=== PATIENT | male | born 1945 | race Caucasian/White ===

== ENCOUNTER 2023-04-14 16:42 | Emergency (ER) | payer MEDICARE, BC ==
[2023-04-14] MEDS ORDERED: Naloxone 0.4 MG/ML SDV IVPUSH PRN (17:48)
[2023-04-14] MEDS: fentaNYL 50 MCG/ML SDV IM ONE (18:03)
== END 2023-04-14 18:35 | disposition home or self-care (01) ==
LOC: VM.ED 16:42 → MERGE 16:42 → VM.ED 18:35
DX: S70.02XA Contusion of left hip, initial encounter (principal); W19.XXXA Unspecified fall, initial encounter
CPT/HCPCS: 70450; 96372; 99284; J3010

== ENCOUNTER 2023-04-17 15:32 | Inpatient (IN) | payer MEDICARE, BC ==
[2023-04-17] MEDS ORDERED: HYDROmorphone 0.5 MG/0.5 ML Syringe IVPUSH ONE (15:49)
[2023-04-17 15:53] LABS: BASOPHILS ABSOLUTE AUTO 0.1 x10^3/uL (0.0-0.2); BASOPHILS PERCENT AUTO 0.5 % (0.2-1.2); EOSINOPHILS ABSOLUTE AUTO 0.6 x10^3/uL (0.0-0.5); EOSINOPHILS PERCENT AUTO 5.9 % (0.0-4.0); HEMATOCRIT 38.6 % (40.0-52.0); HEMOGLOBIN 12.9 g/dL (14.0-18.0); IMMATURE GRAN ABSOLUTE AUTO 0.02 x10^3/uL (0.00-0.07); LYMPHOCYTES ABSOLUTE AUTO 1.2 x10^3/uL (1.0-4.8); LYMPHOCYTES PERCENT AUTO 12.2 % (25.0-50.0); MEAN CORPUSCULAR HEMOGLOBIN 33.8 pg (26.0-32.0); MEAN CORPUSCULAR HGB CONC 33.4 g/dL (32.0-36.0); MONOCYTES ABSOLUTE AUTO 1.6 x10^3/uL (0.0-0.8); MONOCYTES PERCENT AUTO 15.6 % (2.0-11.0); NEUTROPHILS ABSOLUTE AUTO 6.6 x10^3/uL (1.8-7.7); NEUTROPHILS PERCENT AUTO 65.6 % (50.0-80.0); RED BLOOD CELL COUNT 3.82 x10^6/uL (4.5-6.0)
[2023-04-17] MEDS ORDERED: Ondansetron 4 MG/2 ML SDV IVPUSH ONE (15:54)
[2023-04-17 16:00] LABS: PLATELET COUNT,PLT 229 x10^3/uL (130-400)
[2023-04-17 16:10] LABS: A/G RATIO 0.88; ALANINE AMINOTRANSFERASE,ALT 23 U/L (16-63); ALKALINE PHOSPHATASE 101 U/L (46-116); ASPARTATE AMNIOTRANSFERASE,AST 34 U/L (15-37); BILIRUBIN TOTAL 0.4 mg/dL (0.2-1.0); BLOOD UREA NITROGEN,BUN 39 mg/dL (7-18); C-REACTIVE PROTEIN 8.99 mg/dL (<=0.30); CALCIUM 8.8 mg/dL (8.5-10.1); CARBON DIOXIDE,CO2 30 mmol/L (21-32); CHLORIDE,CL 98 mmol/L (98-107); CREATININE 1.8 mg/dL (0.70-1.30); GLUCOSE RANDOM 196 mg/dL (70-99); MAGNESIUM 2.2 mg/dL (1.8-2.4); POTASSIUM,K 4.4 mmol/L (3.5-5.1); PROTEIN TOTAL,TP 6.4 g/dL (6.4-8.2); SODIUM,NA 136 mmol/L (136-145)
[2023-04-17 16:11] LABS: ANION GAP 12.4 mmol/L (5-15); ESTIMATED GFR 38 mL/min (>=60)
[2023-04-17] MEDS: HYDROmorphone 0.5 MG/0.5 ML Syringe IVPUSH SCH ×2 (20:42→23:26)
[2023-04-17] MEDS ORDERED: Ketotifen 0.025% Ophth Soln 5 ML Bottle EYEBOTH PRN (22:19)
[2023-04-17] MEDS ORDERED: Sennosides 8.6 MG Tab PO PRN (22:50)
[2023-04-17] MEDS ORDERED: Albuterol 0.083% 2.5 MG/3 ML Neb Soln NEB SCH (23:00)
[2023-04-17] MEDS: Sodium Chloride 0.9% 10 ML Syringe FLUSH PRN (23:26)
[2023-04-17] MEDS: Albuterol 0.083% 2.5 MG/3 ML Neb Soln NEB PRN (23:33)
[2023-04-18] MEDS: Isosorbide Mononitrate 30 MG Tab.ER PO SCH ×3 (00:05→21:22)
[2023-04-18] MEDS: Propranolol 20 MG Tab PO SCH ×4 (00:05→21:22)
[2023-04-18] MEDS: Metoclopramide 5 MG Tab PO SCH ×6 (00:05→21:24)
[2023-04-18] MEDS: HYDROmorphone 0.5 MG/0.5 ML Syringe IVPUSH SCH ×8 (02:44→23:07)
[2023-04-18] MEDS: Sodium Chloride 0.9% 10 ML Syringe FLUSH PRN ×2 (02:50→11:14)
[2023-04-18] MEDS: Pantoprazole 40 MG Tab.CR PO SCH ×3 (05:36→17:04)
[2023-04-18 06:47] LABS: HEMATOCRIT 37.8 % (40.0-52.0); HEMOGLOBIN 12.6 g/dL (14.0-18.0); MEAN CORPUSCULAR HEMOGLOBIN 33.8 pg (26.0-32.0); MEAN CORPUSCULAR HGB CONC 33.3 g/dL (32.0-36.0); MEAN CORPUSCULAR VOLUME 101.3 fL (78.0-93.0); RED BLOOD CELL COUNT 3.73 x10^6/uL (4.5-6.0); WHITE BLOOD CELL COUNT,WBC 8.7 x10^3/uL (4.0-10.0)
[2023-04-18] MEDS ORDERED: Metoclopramide 5 MG Tab PO SCH (07:00)
[2023-04-18] MEDS: Tamsulosin 0.4 MG Cap.ER PO SCH (08:26)
[2023-04-18] MEDS: Calcitriol 0.25 MCG Cap PO SCH (08:26)
[2023-04-18] MEDS: Aspirin 325 MG Tab.EC PO SCH (08:26)
[2023-04-18] MEDS: Citalopram 20 MG Tab PO SCH (08:27)
[2023-04-18] MEDS: Allopurinol 100 MG Tab PO SCH (08:27)
[2023-04-18] MEDS: Furosemide 40 MG Tab PO SCH (08:27)
[2023-04-18] MEDS: Vitamin B Complex Tab PO SCH (08:28)
[2023-04-18] MEDS: Empagliflozin 10 MG Tab PO SCH (08:33)
[2023-04-18] MEDS: Formoterol/Mometasone 200-5 MCG 13 GM Inhaler INH SCH ×2 (08:33→21:27)
[2023-04-18] MEDS: Insulin Lispro 100 Units/ML 3 ML Vial SUBCUT SCH ×4 (08:34→21:30)
[2023-04-18] MEDS: Insulin Glarg,Human.Rec.Analog 100 Unit/ML 10 ML Vial SUBCUT SCH (08:35)
[2023-04-18] MEDS: Albuterol 0.083% 2.5 MG/3 ML Neb Soln NEB PRN ×2 (08:44→17:17)
[2023-04-18] MEDS ORDERED: Propranolol 20 MG Tab PO SCH (09:00)
[2023-04-18] MEDS ORDERED: Isosorbide Mononitrate 30 MG Tab.ER PO SCH (09:00)
[2023-04-18] MEDS: Enoxaparin 40 MG/0.4 ML Syringe SUBCUT SCH (11:12)
[2023-04-18] MEDS: Acetaminophen/HYDROcodone 325-5 MG Tab PO PRN ×2 (12:20→21:23)
[2023-04-18] MEDS: Polyethylene Glycol 3350 Powder 17 GM Packet PO SCH (21:22)
[2023-04-18] MEDS: Magnesium Oxide 400 MG Tab PO SCH (21:23)
[2023-04-18] MEDS: Melatonin 3 MG Tab PO SCH (21:25)
[2023-04-18] MEDS: UBIDECARENONE 200 MG PO SCH (22:11)
[2023-04-19] MEDS: HYDROmorphone 0.5 MG/0.5 ML Syringe IVPUSH SCH ×4 (01:52→09:26)
[2023-04-19] MEDS: Pantoprazole 40 MG Tab.CR PO SCH ×2 (06:32→17:22)
[2023-04-19] MEDS: Metoclopramide 5 MG Tab PO SCH ×4 (06:32→21:27)
[2023-04-19 07:34] LABS: BASOPHILS ABSOLUTE AUTO 0.1 x10^3/uL (0.0-0.2); BASOPHILS PERCENT AUTO 0.8 % (0.2-1.2); EOSINOPHILS ABSOLUTE AUTO 0.4 x10^3/uL (0.0-0.5); EOSINOPHILS PERCENT AUTO 6.1 % (0.0-4.0); HEMATOCRIT 37.6 % (40.0-52.0); HEMOGLOBIN 12.6 g/dL (14.0-18.0); IMMATURE GRAN ABSOLUTE AUTO 0.01 x10^3/uL (0.00-0.07); LYMPHOCYTES ABSOLUTE AUTO 1.7 x10^3/uL (1.0-4.8); LYMPHOCYTES PERCENT AUTO 23.4 % (25.0-50.0); MEAN CORPUSCULAR HEMOGLOBIN 33.8 pg (26.0-32.0); MEAN CORPUSCULAR HGB CONC 33.5 g/dL (32.0-36.0); MEAN CORPUSCULAR VOLUME 100.8 fL (78.0-93.0); MONOCYTES PERCENT AUTO 14.4 % (2.0-11.0); NEUTROPHILS ABSOLUTE AUTO 3.9 x10^3/uL (1.8-7.7); NEUTROPHILS PERCENT AUTO 55.2 % (50.0-80.0); PLATELET COUNT,PLT 245 x10^3/uL (130-400); RED BLOOD CELL COUNT 3.73 x10^6/uL (4.5-6.0); WHITE BLOOD CELL COUNT,WBC 7.1 x10^3/uL (4.0-10.0)
[2023-04-19 08:06] LABS: A/G RATIO 0.77; ALBUMIN 2.7 g/dL (3.4-5.0); BILIRUBIN TOTAL 0.6 mg/dL (0.2-1.0); CREATININE 1.5 mg/dL (0.70-1.30); EST CRCL DRUG DOSING (CG) 36.22 mL/min; POTASSIUM,K 4.4 mmol/L (3.5-5.1); PROTEIN TOTAL,TP 6.2 g/dL (6.4-8.2)
[2023-04-19 08:16] LABS: ANION GAP 9.4 mmol/L (5-15)
[2023-04-19] MEDS: Formoterol/Mometasone 200-5 MCG 13 GM Inhaler INH SCH ×2 (08:26→21:24)
[2023-04-19] MEDS: Insulin Glarg,Human.Rec.Analog 100 Unit/ML 10 ML Vial SUBCUT SCH (08:26)
[2023-04-19] MEDS: Insulin Lispro 100 Units/ML 3 ML Vial SUBCUT SCH ×4 (08:26→21:24)
[2023-04-19] MEDS: Empagliflozin 10 MG Tab PO SCH (08:28)
[2023-04-19] MEDS: Allopurinol 100 MG Tab PO SCH (08:28)
[2023-04-19] MEDS: Isosorbide Mononitrate 30 MG Tab.ER PO SCH ×2 (08:28→21:07)
[2023-04-19] MEDS: Calcitriol 0.25 MCG Cap PO SCH (08:29)
[2023-04-19] MEDS: Aspirin 325 MG Tab.EC PO SCH (08:29)
[2023-04-19] MEDS: Tamsulosin 0.4 MG Cap.ER PO SCH (08:29)
[2023-04-19] MEDS: Furosemide 40 MG Tab PO SCH (08:29)
[2023-04-19] MEDS: Propranolol 20 MG Tab PO SCH ×3 (08:29→21:10)
[2023-04-19] MEDS: Vitamin B Complex Tab PO SCH (08:29)
[2023-04-19] MEDS: Citalopram 20 MG Tab PO SCH (08:30)
[2023-04-19] MEDS: Acetaminophen/HYDROcodone 325-5 MG Tab PO PRN (08:30)
[2023-04-19] MEDS: Sodium Chloride 0.9% 10 ML Syringe FLUSH PRN (09:31)
[2023-04-19] MEDS: Albuterol 0.083% 2.5 MG/3 ML Neb Soln NEB PRN (09:36)
[2023-04-19] MEDS: Enoxaparin 40 MG/0.4 ML Syringe SUBCUT SCH (11:19)
[2023-04-19] MEDS: Acetaminophen/oxyCODONE 325-5 MG Tab PO PRN ×2 (12:41→21:12)
[2023-04-19] MEDS: HYDROmorphone 0.5 MG/0.5 ML Syringe IVPUSH PRN ×3 (12:42→21:05)
[2023-04-19] MEDS: Melatonin 3 MG Tab PO SCH (21:12)
[2023-04-19] MEDS: Magnesium Oxide 400 MG Tab PO SCH (21:12)
[2023-04-19] MEDS: Polyethylene Glycol 3350 Powder 17 GM Packet PO SCH (21:15)
[2023-04-19] MEDS: UBIDECARENONE 200 MG PO SCH (23:33)
[2023-04-20] MEDS: Acetaminophen/oxyCODONE 325-5 MG Tab PO PRN ×3 (01:57→12:59)
[2023-04-20] MEDS: HYDROmorphone 0.5 MG/0.5 ML Syringe IVPUSH PRN ×3 (05:05→15:28)
[2023-04-20] MEDS: Pantoprazole 40 MG Tab.CR PO SCH ×2 (06:37→16:46)
[2023-04-20] MEDS: Metoclopramide 5 MG Tab PO SCH ×3 (06:37→16:47)
[2023-04-20 08:02] LABS: BASOPHILS ABSOLUTE AUTO 0.1 x10^3/uL (0.0-0.2); BASOPHILS PERCENT AUTO 0.8 % (0.2-1.2); EOSINOPHILS ABSOLUTE AUTO 0.4 x10^3/uL (0.0-0.5); EOSINOPHILS PERCENT AUTO 4.9 % (0.0-4.0); HEMATOCRIT 39.4 % (40.0-52.0); HEMOGLOBIN 13.3 g/dL (14.0-18.0); IMMATURE GRAN ABSOLUTE AUTO 0.02 x10^3/uL (0.00-0.07); LYMPHOCYTES ABSOLUTE AUTO 1.6 x10^3/uL (1.0-4.8); LYMPHOCYTES PERCENT AUTO 21.1 % (25.0-50.0); MEAN CORPUSCULAR HEMOGLOBIN 33.6 pg (26.0-32.0); MEAN CORPUSCULAR HGB CONC 33.8 g/dL (32.0-36.0); MEAN CORPUSCULAR VOLUME 99.5 fL (78.0-93.0); MONOCYTES ABSOLUTE AUTO 1.1 x10^3/uL (0.0-0.8); MONOCYTES PERCENT AUTO 14.5 % (2.0-11.0); NEUTROPHILS ABSOLUTE AUTO 4.3 x10^3/uL (1.8-7.7); NEUTROPHILS PERCENT AUTO 58.4 % (50.0-80.0); PLATELET COUNT,PLT 276 x10^3/uL (130-400); RED BLOOD CELL COUNT 3.96 x10^6/uL (4.5-6.0); WHITE BLOOD CELL COUNT,WBC 7.4 x10^3/uL (4.0-10.0)
[2023-04-20 08:57] LABS: A/G RATIO 0.77; BILIRUBIN TOTAL 0.6 mg/dL (0.2-1.0); CALCIUM 9.1 mg/dL (8.5-10.1); CREATININE 1.4 mg/dL (0.70-1.30); EST CRCL DRUG DOSING (CG) 38.81 mL/min; POTASSIUM,K 4.5 mmol/L (3.5-5.1); PROTEIN TOTAL,TP 6.9 g/dL (6.4-8.2)
[2023-04-20 08:58] LABS: ANION GAP 11.5 mmol/L (5-15)
[2023-04-20] MEDS: Tamsulosin 0.4 MG Cap.ER PO SCH (09:09)
[2023-04-20] MEDS: Allopurinol 100 MG Tab PO SCH (09:09)
[2023-04-20] MEDS: Citalopram 20 MG Tab PO SCH (09:10)
[2023-04-20] MEDS: Furosemide 40 MG Tab PO SCH (09:10)
[2023-04-20] MEDS: Calcitriol 0.25 MCG Cap PO SCH (09:11)
[2023-04-20] MEDS: Vitamin B Complex Tab PO SCH (09:11)
[2023-04-20] MEDS: Aspirin 325 MG Tab.EC PO SCH (09:11)
[2023-04-20] MEDS: Isosorbide Mononitrate 30 MG Tab.ER PO SCH (09:12)
[2023-04-20] MEDS: Propranolol 20 MG Tab PO SCH ×2 (09:12→13:00)
[2023-04-20] MEDS: Formoterol/Mometasone 200-5 MCG 13 GM Inhaler INH SCH (09:14)
[2023-04-20] MEDS: Insulin Glarg,Human.Rec.Analog 100 Unit/ML 10 ML Vial SUBCUT SCH (09:15)
[2023-04-20] MEDS: Insulin Lispro 100 Units/ML 3 ML Vial SUBCUT SCH ×2 (09:17→12:58)
[2023-04-20] MEDS: Sodium Chloride 0.9% 10 ML Syringe FLUSH PRN (10:34)
[2023-04-20] MEDS: Enoxaparin 40 MG/0.4 ML Syringe SUBCUT SCH (11:14)
== END 2023-04-20 17:25 | disposition swing bed (61) | DRG 536 ==
LOC: VM.ED 15:32 → VM.MS 18:27
PROVIDERS: ADMIT Physician Assistant; ATTEND Family Medicine
DX: S32.512A Fracture of superior rim of left pubis, initial encounter for closed fracture (principal); M25.512 Pain in left shoulder; I13.0 Hypertensive heart and chronic kidney disease with heart failure and stage 1 through stage 4 chronic kidney disease, or unspecified chronic kidney disease; S32.592A Other specified fracture of left pubis, initial encounter for closed fracture; I25.10 Atherosclerotic heart disease of native coronary artery without angina pectoris; E78.00 Pure hypercholesterolemia, unspecified; I50.9 Heart failure, unspecified; J44.9 Chronic obstructive pulmonary disease, unspecified; G47.30 Sleep apnea, unspecified; G89.4 Chronic pain syndrome; N18.9 Chronic kidney disease, unspecified; M19.90 Unspecified osteoarthritis, unspecified site; M54.9 Dorsalgia, unspecified; G89.29 Other chronic pain; E11.22 Type 2 diabetes mellitus with diabetic chronic kidney disease; J98.4 Other disorders of lung; E11.43 Type 2 diabetes mellitus with diabetic autonomic (poly)neuropathy; K31.84 Gastroparesis; K59.00 Constipation, unspecified; Z88.8 Allergy status to other drugs, medicaments and biological substances; Z79.82 Long term (current) use of aspirin; Z79.4 Long term (current) use of insulin; Z79.899 Other long term (current) drug therapy; W19.XXXA Unspecified fall, initial encounter
CPT/HCPCS: 72131; 73030; 73552; 80053; 83735; 85025; 86140; 96374; 96375; 99285; J1170; J2405; 36415; 82947; 85027; 94640; 97162-GP; 97166-GO; A9270-GY; J1650; J1815-GY; J3490; J7613-GY

== ENCOUNTER 2023-04-20 10:39 | Inpatient (IN) | payer MEDICARE, BC ==
[2023-04-20] MEDS ORDERED: Nitroglycerin 0.4 MG Tab.SL SL PRN (10:44)
[2023-04-20] MEDS ORDERED: Albuterol HFA 18 Gm Inhaler INH PRN (10:44)
[2023-04-20] MEDS: Acetaminophen/oxyCODONE 325-5 MG Tab PO PRN ×2 (19:00→22:24)
[2023-04-20] MEDS ORDERED: FLU (Fluad Quad) 2023-24(65UP)/MF59C/PF 60 MCG/0.5 ML Syringe IM ONE (21:00)
[2023-04-20] MEDS ORDERED: Non-Formulary Medication 1 Each (Fluticasone Propion/Salmeterol [Advair 250-50 Diskus] 1 E INH SCH (21:00)
[2023-04-20] MEDS: Acetaminophen 325 MG Tab PO PRN (22:20)
[2023-04-20] MEDS: Magnesium Oxide 400 MG Tab PO SCH (22:20)
[2023-04-20] MEDS: Isosorbide Mononitrate 30 MG Tab.ER PO SCH (22:23)
[2023-04-20] MEDS: Metoclopramide 5 MG Tab PO SCH (22:23)
[2023-04-20] MEDS: Propranolol 20 MG Tab PO SCH (22:23)
[2023-04-20] MEDS: Polyethylene Glycol 3350 Powder 17 GM Packet PO SCH (22:24)
[2023-04-20] MEDS: Formoterol/Mometasone 200-5 MCG 13 GM Inhaler INH SCH (22:56)
[2023-04-21] MEDS: Melatonin 3 MG Tab PO SCH ×2 (01:59→21:39)
[2023-04-21] MEDS: Acetaminophen 325 MG Tab PO PRN ×2 (02:39→12:33)
[2023-04-21] MEDS: Acetaminophen/oxyCODONE 325-5 MG Tab PO PRN ×5 (02:39→21:37)
[2023-04-21] MEDS: Citalopram 20 MG Tab PO SCH (08:35)
[2023-04-21] MEDS: Vitamin B Complex Tab PO SCH (08:37)
[2023-04-21] MEDS: Isosorbide Mononitrate 30 MG Tab.ER PO SCH ×2 (08:38→21:46)
[2023-04-21] MEDS: Propranolol 20 MG Tab PO SCH ×3 (08:38→21:38)
[2023-04-21] MEDS: Metoclopramide 5 MG Tab PO SCH ×4 (08:40→21:39)
[2023-04-21] MEDS: Aspirin 81 MG Tab.EC PO SCH (08:40)
[2023-04-21] MEDS: Pantoprazole 40 MG Tab.CR PO SCH (08:40)
[2023-04-21] MEDS: Calcitriol 0.25 MCG Cap PO SCH (08:40)
[2023-04-21] MEDS: Furosemide 40 MG Tab PO SCH (08:40)
[2023-04-21] MEDS: Allopurinol 100 MG Tab PO SCH (08:40)
[2023-04-21] MEDS: Formoterol/Mometasone 200-5 MCG 13 GM Inhaler INH SCH ×2 (08:41→21:51)
[2023-04-21] MEDS: Insulin Glarg,Human.Rec.Analog 100 Unit/ML 10 ML Vial SUBCUT SCH (08:41)
[2023-04-21] MEDS: Tamsulosin 0.4 MG Cap.ER PO SCH (08:45)
[2023-04-21] MEDS: Insulin Lispro 100 Units/ML 3 ML Vial SUBCUT SCH ×3 (13:17→21:40)
[2023-04-21] MEDS: Magnesium Oxide 400 MG Tab PO SCH (21:39)
[2023-04-21] MEDS: Polyethylene Glycol 3350 Powder 17 GM Packet PO SCH (21:51)
[2023-04-22] MEDS: Acetaminophen 325 MG Tab PO PRN (00:39)
[2023-04-22] MEDS: Acetaminophen/oxyCODONE 325-5 MG Tab PO PRN ×5 (03:13→22:04)
[2023-04-22] MEDS: Pantoprazole 40 MG Tab.CR PO SCH (06:22)
[2023-04-22] MEDS: Metoclopramide 5 MG Tab PO SCH ×4 (06:22→21:01)
[2023-04-22] MEDS: Insulin Lispro 100 Units/ML 3 ML Vial SUBCUT SCH ×4 (08:35→21:04)
[2023-04-22] MEDS: Insulin Glarg,Human.Rec.Analog 100 Unit/ML 10 ML Vial SUBCUT SCH (08:36)
[2023-04-22] MEDS: Formoterol/Mometasone 200-5 MCG 13 GM Inhaler INH SCH ×2 (08:37→20:58)
[2023-04-22] MEDS: Citalopram 20 MG Tab PO SCH (08:38)
[2023-04-22] MEDS: Tamsulosin 0.4 MG Cap.ER PO SCH (08:38)
[2023-04-22] MEDS: Propranolol 20 MG Tab PO SCH ×3 (08:38→21:01)
[2023-04-22] MEDS: Aspirin 81 MG Tab.EC PO SCH (08:39)
[2023-04-22] MEDS: Isosorbide Mononitrate 30 MG Tab.ER PO SCH ×2 (08:39→21:02)
[2023-04-22] MEDS: Calcitriol 0.25 MCG Cap PO SCH (08:39)
[2023-04-22] MEDS: Vitamin B Complex Tab PO SCH (08:39)
[2023-04-22] MEDS: Furosemide 40 MG Tab PO SCH ×2 (08:39→08:40)
[2023-04-22] MEDS: Allopurinol 100 MG Tab PO SCH (08:56)
[2023-04-22] MEDS: Magnesium Oxide 400 MG Tab PO SCH (21:00)
[2023-04-22] MEDS: Melatonin 3 MG Tab PO SCH (21:01)
[2023-04-22] MEDS: Polyethylene Glycol 3350 Powder 17 GM Packet PO SCH (21:02)
[2023-04-23] MEDS: Acetaminophen 325 MG Tab PO PRN (01:29)
[2023-04-23] MEDS: Acetaminophen/oxyCODONE 325-5 MG Tab PO PRN ×5 (03:07→20:46)
[2023-04-23] MEDS: Metoclopramide 5 MG Tab PO SCH ×4 (06:37→20:50)
[2023-04-23] MEDS: Pantoprazole 40 MG Tab.CR PO SCH (06:37)
[2023-04-23] MEDS: Vitamin B Complex Tab PO SCH (08:23)
[2023-04-23] MEDS: Aspirin 81 MG Tab.EC PO SCH (08:23)
[2023-04-23] MEDS: Citalopram 20 MG Tab PO SCH (08:23)
[2023-04-23] MEDS: Tamsulosin 0.4 MG Cap.ER PO SCH (08:23)
[2023-04-23] MEDS: Allopurinol 100 MG Tab PO SCH (08:23)
[2023-04-23] MEDS: Propranolol 20 MG Tab PO SCH ×3 (08:24→20:52)
[2023-04-23] MEDS: Isosorbide Mononitrate 30 MG Tab.ER PO SCH ×2 (08:24→20:50)
[2023-04-23] MEDS: Furosemide 40 MG Tab PO SCH (08:24)
[2023-04-23] MEDS: Calcitriol 0.25 MCG Cap PO SCH (08:24)
[2023-04-23] MEDS: Insulin Glarg,Human.Rec.Analog 100 Unit/ML 10 ML Vial SUBCUT SCH (08:27)
[2023-04-23] MEDS: Formoterol/Mometasone 200-5 MCG 13 GM Inhaler INH SCH ×2 (08:27→21:03)
[2023-04-23] MEDS: Insulin Lispro 100 Units/ML 3 ML Vial SUBCUT SCH ×4 (08:28→20:58)
[2023-04-23] MEDS: Triamcinolone Acetonide 0.1% Crm 15 GM Tube TOP SCH ×2 (10:47→21:05)
[2023-04-23] MEDS: Magnesium Oxide 400 MG Tab PO SCH (20:51)
[2023-04-23] MEDS: Melatonin 3 MG Tab PO SCH (20:51)
[2023-04-23] MEDS ORDERED: Triamcinolone Acetonide 0.1% Crm 15 GM Tube TOP SCH ×2 (21:00)
[2023-04-23] MEDS: Polyethylene Glycol 3350 Powder 17 GM Packet PO SCH (21:13)
[2023-04-24] MEDS: Acetaminophen/oxyCODONE 325-5 MG Tab PO PRN ×6 (02:05→22:38)
[2023-04-24] MEDS: Pantoprazole 40 MG Tab.CR PO SCH (06:30)
[2023-04-24] MEDS: Metoclopramide 5 MG Tab PO SCH ×4 (06:30→21:13)
[2023-04-24] MEDS: Acetaminophen 325 MG Tab PO PRN (09:32)
[2023-04-24] MEDS: Aspirin 81 MG Tab.EC PO SCH (09:34)
[2023-04-24] MEDS: Isosorbide Mononitrate 30 MG Tab.ER PO SCH ×2 (09:34→21:13)
[2023-04-24] MEDS: Furosemide 40 MG Tab PO SCH (09:36)
[2023-04-24] MEDS: Citalopram 20 MG Tab PO SCH (09:37)
[2023-04-24] MEDS: Tamsulosin 0.4 MG Cap.ER PO SCH (09:37)
[2023-04-24] MEDS: Vitamin B Complex Tab PO SCH (09:37)
[2023-04-24] MEDS: Propranolol 20 MG Tab PO SCH ×3 (09:38→21:14)
[2023-04-24] MEDS: Allopurinol 100 MG Tab PO SCH (09:39)
[2023-04-24] MEDS: Calcitriol 0.25 MCG Cap PO SCH (09:39)
[2023-04-24] MEDS: Triamcinolone Acetonide 0.1% Crm 15 GM Tube TOP SCH ×2 (09:41→21:28)
[2023-04-24] MEDS: Formoterol/Mometasone 200-5 MCG 13 GM Inhaler INH SCH ×2 (09:46→21:16)
[2023-04-24] MEDS: Insulin Glarg,Human.Rec.Analog 100 Unit/ML 10 ML Vial SUBCUT SCH (09:47)
[2023-04-24] MEDS: Insulin Lispro 100 Units/ML 3 ML Vial SUBCUT SCH ×4 (09:48→21:26)
[2023-04-24] MEDS: Polyethylene Glycol 3350 Powder 17 GM Packet PO SCH (21:13)
[2023-04-24] MEDS: Melatonin 3 MG Tab PO SCH (21:15)
[2023-04-24] MEDS: Magnesium Oxide 400 MG Tab PO SCH (21:15)
[2023-04-25] MEDS: Acetaminophen/oxyCODONE 325-5 MG Tab PO PRN ×5 (02:38→19:35)
[2023-04-25] MEDS: Pantoprazole 40 MG Tab.CR PO SCH (06:30)
[2023-04-25] MEDS: Metoclopramide 5 MG Tab PO SCH ×4 (06:30→20:28)
[2023-04-25] MEDS: Insulin Glarg,Human.Rec.Analog 100 Unit/ML 10 ML Vial SUBCUT SCH (09:00)
[2023-04-25] MEDS: Insulin Lispro 100 Units/ML 3 ML Vial SUBCUT SCH ×4 (09:01→20:18)
[2023-04-25] MEDS: Tamsulosin 0.4 MG Cap.ER PO SCH (09:01)
[2023-04-25] MEDS: Calcitriol 0.25 MCG Cap PO SCH (09:02)
[2023-04-25] MEDS: Citalopram 20 MG Tab PO SCH (09:02)
[2023-04-25] MEDS: Allopurinol 100 MG Tab PO SCH (09:02)
[2023-04-25] MEDS: Furosemide 40 MG Tab PO SCH (09:02)
[2023-04-25] MEDS: Propranolol 20 MG Tab PO SCH ×3 (09:02→20:28)
[2023-04-25] MEDS: Isosorbide Mononitrate 30 MG Tab.ER PO SCH ×2 (09:03→20:28)
[2023-04-25] MEDS: Vitamin B Complex Tab PO SCH (09:03)
[2023-04-25] MEDS: Aspirin 81 MG Tab.EC PO SCH (09:03)
[2023-04-25] MEDS: Triamcinolone Acetonide 0.1% Crm 15 GM Tube TOP SCH ×2 (09:03→20:01)
[2023-04-25] MEDS: Formoterol/Mometasone 200-5 MCG 13 GM Inhaler INH SCH ×2 (09:04→20:32)
[2023-04-25] MEDS: Acetaminophen 325 MG Tab PO PRN (13:31)
[2023-04-25] MEDS: Melatonin 3 MG Tab PO SCH (20:27)
[2023-04-25] MEDS: Magnesium Oxide 400 MG Tab PO SCH (20:28)
[2023-04-25] MEDS: Polyethylene Glycol 3350 Powder 17 GM Packet PO SCH (20:32)
[2023-04-26] MEDS: Acetaminophen/oxyCODONE 325-5 MG Tab PO PRN ×6 (01:08→23:47)
[2023-04-26] MEDS: Pantoprazole 40 MG Tab.CR PO SCH (06:07)
[2023-04-26] MEDS: Metoclopramide 5 MG Tab PO SCH ×4 (06:07→20:08)
[2023-04-26] MEDS: Isosorbide Mononitrate 30 MG Tab.ER PO SCH ×2 (08:38→20:08)
[2023-04-26] MEDS: Propranolol 20 MG Tab PO SCH ×3 (08:38→20:09)
[2023-04-26] MEDS: Aspirin 81 MG Tab.EC PO SCH (08:38)
[2023-04-26] MEDS: Tamsulosin 0.4 MG Cap.ER PO SCH (08:38)
[2023-04-26] MEDS: Citalopram 20 MG Tab PO SCH (08:39)
[2023-04-26] MEDS: Calcitriol 0.25 MCG Cap PO SCH (08:39)
[2023-04-26] MEDS: Furosemide 40 MG Tab PO SCH (08:39)
[2023-04-26] MEDS: Vitamin B Complex Tab PO SCH (08:39)
[2023-04-26] MEDS: Allopurinol 100 MG Tab PO SCH (08:39)
[2023-04-26] MEDS: Formoterol/Mometasone 200-5 MCG 13 GM Inhaler INH SCH ×2 (08:40→20:15)
[2023-04-26] MEDS: Triamcinolone Acetonide 0.1% Crm 15 GM Tube TOP SCH ×2 (08:40→20:16)
[2023-04-26] MEDS: Insulin Lispro 100 Units/ML 3 ML Vial SUBCUT SCH ×4 (08:41→20:21)
[2023-04-26] MEDS: Insulin Glarg,Human.Rec.Analog 100 Unit/ML 10 ML Vial SUBCUT SCH (08:42)
[2023-04-26] MEDS: Acetaminophen 325 MG Tab PO PRN (12:23)
[2023-04-26] MEDS: Magnesium Oxide 400 MG Tab PO SCH (20:07)
[2023-04-26] MEDS: Melatonin 3 MG Tab PO SCH (20:09)
[2023-04-26] MEDS: Polyethylene Glycol 3350 Powder 17 GM Packet PO SCH (20:12)
[2023-04-27] MEDS: Acetaminophen/oxyCODONE 325-5 MG Tab PO PRN ×4 (06:27→23:02)
[2023-04-27] MEDS: Pantoprazole 40 MG Tab.CR PO SCH (06:27)
[2023-04-27] MEDS: Metoclopramide 5 MG Tab PO SCH ×4 (06:28→20:11)
[2023-04-27] MEDS: Insulin Glarg,Human.Rec.Analog 100 Unit/ML 10 ML Vial SUBCUT SCH (08:31)
[2023-04-27] MEDS: Insulin Lispro 100 Units/ML 3 ML Vial SUBCUT SCH ×4 (08:31→20:20)
[2023-04-27] MEDS: Formoterol/Mometasone 200-5 MCG 13 GM Inhaler INH SCH ×2 (08:31→20:12)
[2023-04-27] MEDS: Triamcinolone Acetonide 0.1% Crm 15 GM Tube TOP SCH ×2 (08:32→20:13)
[2023-04-27] MEDS: Citalopram 20 MG Tab PO SCH (08:32)
[2023-04-27] MEDS: Tamsulosin 0.4 MG Cap.ER PO SCH (08:33)
[2023-04-27] MEDS: Furosemide 40 MG Tab PO SCH (08:33)
[2023-04-27] MEDS: Propranolol 20 MG Tab PO SCH ×3 (08:33→20:09)
[2023-04-27] MEDS: Aspirin 81 MG Tab.EC PO SCH (08:33)
[2023-04-27] MEDS: Allopurinol 100 MG Tab PO SCH (08:33)
[2023-04-27] MEDS: Vitamin B Complex Tab PO SCH (08:33)
[2023-04-27] MEDS: Calcitriol 0.25 MCG Cap PO SCH (08:33)
[2023-04-27] MEDS: Isosorbide Mononitrate 30 MG Tab.ER PO SCH ×2 (08:40→20:09)
[2023-04-27] MEDS: Acetaminophen 325 MG Tab PO PRN ×2 (13:32→20:35)
[2023-04-27] MEDS: Magnesium Oxide 400 MG Tab PO SCH (20:10)
[2023-04-27] MEDS: Melatonin 3 MG Tab PO SCH (20:11)
[2023-04-27] MEDS: Polyethylene Glycol 3350 Powder 17 GM Packet PO SCH (20:11)
[2023-04-28] MEDS ORDERED: ALPRAZolam 0.25 MG Tab PO ONE (00:09)
[2023-04-28] MEDS: Acetaminophen/oxyCODONE 325-5 MG Tab PO PRN ×5 (05:04→23:20)
[2023-04-28] MEDS: Metoclopramide 5 MG Tab PO SCH ×4 (06:31→21:24)
[2023-04-28] MEDS: Pantoprazole 40 MG Tab.CR PO SCH (06:31)
[2023-04-28] MEDS: Vitamin B Complex Tab PO SCH (08:07)
[2023-04-28] MEDS: Furosemide 40 MG Tab PO SCH (08:07)
[2023-04-28] MEDS: Tamsulosin 0.4 MG Cap.ER PO SCH (08:07)
[2023-04-28] MEDS: Citalopram 20 MG Tab PO SCH (08:08)
[2023-04-28] MEDS: Allopurinol 100 MG Tab PO SCH (08:08)
[2023-04-28] MEDS: Calcitriol 0.25 MCG Cap PO SCH (08:08)
[2023-04-28] MEDS: Isosorbide Mononitrate 30 MG Tab.ER PO SCH ×2 (08:08→21:24)
[2023-04-28] MEDS: Aspirin 81 MG Tab.EC PO SCH (08:08)
[2023-04-28] MEDS: Propranolol 20 MG Tab PO SCH ×3 (08:09→21:23)
[2023-04-28] MEDS: Insulin Glarg,Human.Rec.Analog 100 Unit/ML 10 ML Vial SUBCUT SCH (08:09)
[2023-04-28] MEDS: Insulin Lispro 100 Units/ML 3 ML Vial SUBCUT SCH ×4 (08:10→21:31)
[2023-04-28] MEDS: Formoterol/Mometasone 200-5 MCG 13 GM Inhaler INH SCH ×2 (08:11→21:26)
[2023-04-28] MEDS: Triamcinolone Acetonide 0.1% Crm 15 GM Tube TOP SCH ×2 (08:11→21:29)
[2023-04-28] MEDS: Magnesium Oxide 400 MG Tab PO SCH (21:23)
[2023-04-28] MEDS: Melatonin 3 MG Tab PO SCH (21:25)
[2023-04-28] MEDS: Polyethylene Glycol 3350 Powder 17 GM Packet PO SCH (21:25)
[2023-04-29] MEDS: Acetaminophen/oxyCODONE 325-5 MG Tab PO PRN ×5 (04:04→21:42)
[2023-04-29] MEDS: Pantoprazole 40 MG Tab.CR PO SCH (06:18)
[2023-04-29] MEDS: Metoclopramide 5 MG Tab PO SCH ×4 (06:18→21:19)
[2023-04-29] MEDS: Triamcinolone Acetonide 0.1% Crm 15 GM Tube TOP SCH ×2 (08:06→21:32)
[2023-04-29] MEDS: Formoterol/Mometasone 200-5 MCG 13 GM Inhaler INH SCH ×2 (08:06→21:31)
[2023-04-29] MEDS: Aspirin 81 MG Tab.EC PO SCH (08:06)
[2023-04-29] MEDS: Furosemide 40 MG Tab PO SCH (08:07)
[2023-04-29] MEDS: Propranolol 20 MG Tab PO SCH ×3 (08:07→21:18)
[2023-04-29] MEDS: Isosorbide Mononitrate 30 MG Tab.ER PO SCH ×2 (08:07→21:20)
[2023-04-29] MEDS: Vitamin B Complex Tab PO SCH (08:07)
[2023-04-29] MEDS: Allopurinol 100 MG Tab PO SCH (08:07)
[2023-04-29] MEDS: Citalopram 20 MG Tab PO SCH (08:07)
[2023-04-29] MEDS: Tamsulosin 0.4 MG Cap.ER PO SCH (08:07)
[2023-04-29] MEDS: Calcitriol 0.25 MCG Cap PO SCH (08:07)
[2023-04-29] MEDS: Insulin Glarg,Human.Rec.Analog 100 Unit/ML 10 ML Vial SUBCUT SCH (08:10)
[2023-04-29] MEDS: Insulin Lispro 100 Units/ML 3 ML Vial SUBCUT SCH ×4 (08:11→21:29)
[2023-04-29] MEDS: Lisinopril 10 MG Tab PO SCH (12:25)
[2023-04-29] MEDS: Melatonin 3 MG Tab PO SCH (21:19)
[2023-04-29] MEDS: Polyethylene Glycol 3350 Powder 17 GM Packet PO SCH (21:20)
[2023-04-29] MEDS: Magnesium Oxide 400 MG Tab PO SCH (21:20)
[2023-04-29] MEDS: ALPRAZolam 0.25 MG Tab PO SCH (21:21)
[2023-04-30] MEDS: Acetaminophen/oxyCODONE 325-5 MG Tab PO PRN ×5 (03:05→20:17)
[2023-04-30] MEDS: Pantoprazole 40 MG Tab.CR PO SCH (06:15)
[2023-04-30] MEDS: Metoclopramide 5 MG Tab PO SCH ×4 (06:15→20:16)
[2023-04-30] MEDS: Calcitriol 0.25 MCG Cap PO SCH (09:01)
[2023-04-30] MEDS: Allopurinol 100 MG Tab PO SCH (09:01)
[2023-04-30] MEDS: Aspirin 81 MG Tab.EC PO SCH (09:01)
[2023-04-30] MEDS: Vitamin B Complex Tab PO SCH (09:01)
[2023-04-30] MEDS: Propranolol 20 MG Tab PO SCH ×3 (09:02→20:16)
[2023-04-30] MEDS: Furosemide 40 MG Tab PO SCH (09:02)
[2023-04-30] MEDS: Tamsulosin 0.4 MG Cap.ER PO SCH (09:02)
[2023-04-30] MEDS: Citalopram 20 MG Tab PO SCH (09:02)
[2023-04-30] MEDS: Triamcinolone Acetonide 0.1% Crm 15 GM Tube TOP SCH ×2 (09:03→20:20)
[2023-04-30] MEDS: Formoterol/Mometasone 200-5 MCG 13 GM Inhaler INH SCH ×2 (09:03→20:20)
[2023-04-30] MEDS: Insulin Lispro 100 Units/ML 3 ML Vial SUBCUT SCH ×4 (09:04→20:20)
[2023-04-30] MEDS: Insulin Glarg,Human.Rec.Analog 100 Unit/ML 10 ML Vial SUBCUT SCH (09:04)
[2023-04-30] MEDS: Isosorbide Mononitrate 30 MG Tab.ER PO SCH ×2 (09:05→20:16)
[2023-04-30] MEDS: Lisinopril 10 MG Tab PO SCH (09:05)
[2023-04-30] MEDS: Polyethylene Glycol 3350 Powder 17 GM Packet PO SCH (20:14)
[2023-04-30] MEDS: Magnesium Oxide 400 MG Tab PO SCH (20:15)
[2023-04-30] MEDS: Acetaminophen 325 MG Tab PO PRN (20:16)
[2023-04-30] MEDS: ALPRAZolam 0.25 MG Tab PO SCH (20:16)
[2023-04-30] MEDS: Melatonin 3 MG Tab PO SCH (20:16)
[2023-04-30] MEDS: Ketotifen 0.025% Ophth Soln 5 ML Bottle EYEBOTH PRN (20:29)
[2023-05-01] MEDS: Acetaminophen/oxyCODONE 325-5 MG Tab PO PRN ×6 (00:36→23:16)
[2023-05-01] MEDS: Metoclopramide 5 MG Tab PO SCH ×4 (06:23→21:11)
[2023-05-01] MEDS: Acetaminophen 325 MG Tab PO PRN ×3 (06:23→14:40)
[2023-05-01] MEDS: Pantoprazole 40 MG Tab.CR PO SCH (06:23)
[2023-05-01] MEDS: Tamsulosin 0.4 MG Cap.ER PO SCH (08:15)
[2023-05-01] MEDS: Citalopram 20 MG Tab PO SCH (08:15)
[2023-05-01] MEDS: Isosorbide Mononitrate 30 MG Tab.ER PO SCH ×2 (08:16→21:11)
[2023-05-01] MEDS: Aspirin 81 MG Tab.EC PO SCH (08:17)
[2023-05-01] MEDS: Allopurinol 100 MG Tab PO SCH (08:18)
[2023-05-01] MEDS: Vitamin B Complex Tab PO SCH (08:18)
[2023-05-01] MEDS: Furosemide 40 MG Tab PO SCH (08:18)
[2023-05-01] MEDS: Calcitriol 0.25 MCG Cap PO SCH (08:19)
[2023-05-01] MEDS: Propranolol 20 MG Tab PO SCH ×3 (08:19→21:11)
[2023-05-01] MEDS: Lisinopril 10 MG Tab PO SCH (08:20)
[2023-05-01] MEDS: Formoterol/Mometasone 200-5 MCG 13 GM Inhaler INH SCH ×2 (08:21→21:09)
[2023-05-01] MEDS: Triamcinolone Acetonide 0.1% Crm 15 GM Tube TOP SCH ×2 (08:22→21:09)
[2023-05-01] MEDS: Insulin Glarg,Human.Rec.Analog 100 Unit/ML 10 ML Vial SUBCUT SCH (08:23)
[2023-05-01] MEDS: Insulin Lispro 100 Units/ML 3 ML Vial SUBCUT SCH ×4 (08:26→21:22)
[2023-05-01] MEDS: Polyethylene Glycol 3350 Powder 17 GM Packet PO SCH (21:10)
[2023-05-01] MEDS: Melatonin 3 MG Tab PO SCH (21:11)
[2023-05-01] MEDS: Magnesium Oxide 400 MG Tab PO SCH (21:11)
[2023-05-01] MEDS: ALPRAZolam 0.25 MG Tab PO SCH (21:11)
[2023-05-02] MEDS: Acetaminophen/oxyCODONE 325-5 MG Tab PO PRN ×5 (04:58→21:22)
[2023-05-02] MEDS: Pantoprazole 40 MG Tab.CR PO SCH ×2 (05:51→07:41)
[2023-05-02] MEDS: Metoclopramide 5 MG Tab PO SCH ×5 (05:51→21:22)
[2023-05-02] MEDS: Tamsulosin 0.4 MG Cap.ER PO SCH (09:02)
[2023-05-02] MEDS: Aspirin 81 MG Tab.EC PO SCH (09:03)
[2023-05-02] MEDS: Citalopram 20 MG Tab PO SCH (09:05)
[2023-05-02] MEDS: Furosemide 40 MG Tab PO SCH (09:05)
[2023-05-02] MEDS: Allopurinol 100 MG Tab PO SCH (09:05)
[2023-05-02] MEDS: Calcitriol 0.25 MCG Cap PO SCH (09:07)
[2023-05-02] MEDS: Vitamin B Complex Tab PO SCH (09:07)
[2023-05-02] MEDS: Lisinopril 10 MG Tab PO SCH (09:07)
[2023-05-02] MEDS: Propranolol 20 MG Tab PO SCH ×3 (09:08→21:30)
[2023-05-02] MEDS: Isosorbide Mononitrate 30 MG Tab.ER PO SCH ×2 (09:08→21:29)
[2023-05-02] MEDS: Formoterol/Mometasone 200-5 MCG 13 GM Inhaler INH SCH ×2 (09:09→21:21)
[2023-05-02] MEDS: Insulin Lispro 100 Units/ML 3 ML Vial SUBCUT SCH ×4 (09:10→21:20)
[2023-05-02] MEDS: Insulin Glarg,Human.Rec.Analog 100 Unit/ML 10 ML Vial SUBCUT SCH (09:12)
[2023-05-02] MEDS: Triamcinolone Acetonide 0.1% Crm 15 GM Tube TOP SCH ×2 (09:14→21:38)
[2023-05-02] MEDS: Acetaminophen 325 MG Tab PO PRN ×2 (13:05→21:24)
[2023-05-02] MEDS: Polyethylene Glycol 3350 Powder 17 GM Packet PO SCH (21:22)
[2023-05-02] MEDS: ALPRAZolam 0.25 MG Tab PO SCH (21:22)
[2023-05-02] MEDS: Melatonin 3 MG Tab PO SCH (21:25)
[2023-05-02] MEDS: Magnesium Oxide 400 MG Tab PO SCH (21:25)
[2023-05-03] MEDS: Acetaminophen/oxyCODONE 325-5 MG Tab PO PRN ×5 (02:25→21:05)
[2023-05-03] MEDS: Metoclopramide 5 MG Tab PO SCH ×4 (06:29→21:09)
[2023-05-03] MEDS: Pantoprazole 40 MG Tab.CR PO SCH (06:29)
[2023-05-03] MEDS: Formoterol/Mometasone 200-5 MCG 13 GM Inhaler INH SCH ×2 (08:26→21:04)
[2023-05-03] MEDS: Aspirin 81 MG Tab.EC PO SCH (08:27)
[2023-05-03] MEDS: Tamsulosin 0.4 MG Cap.ER PO SCH (08:28)
[2023-05-03] MEDS: Citalopram 20 MG Tab PO SCH (08:28)
[2023-05-03] MEDS: Calcitriol 0.25 MCG Cap PO SCH (08:29)
[2023-05-03] MEDS: Isosorbide Mononitrate 30 MG Tab.ER PO SCH ×2 (08:29→21:10)
[2023-05-03] MEDS: Propranolol 20 MG Tab PO SCH ×3 (08:29→21:10)
[2023-05-03] MEDS: Vitamin B Complex Tab PO SCH (08:30)
[2023-05-03] MEDS: Allopurinol 100 MG Tab PO SCH (08:30)
[2023-05-03] MEDS: Lisinopril 10 MG Tab PO SCH (08:31)
[2023-05-03] MEDS: Furosemide 40 MG Tab PO SCH (08:31)
[2023-05-03] MEDS: Triamcinolone Acetonide 0.1% Crm 15 GM Tube TOP SCH ×2 (08:32→21:11)
[2023-05-03] MEDS: Insulin Glarg,Human.Rec.Analog 100 Unit/ML 10 ML Vial SUBCUT SCH (08:32)
[2023-05-03] MEDS: Insulin Lispro 100 Units/ML 3 ML Vial SUBCUT SCH ×4 (08:34→21:03)
[2023-05-03] MEDS: Ketotifen 0.025% Ophth Soln 5 ML Bottle EYEBOTH PRN (08:36)
[2023-05-03] MEDS: Polyethylene Glycol 3350 Powder 17 GM Packet PO SCH (21:04)
[2023-05-03] MEDS: ALPRAZolam 0.25 MG Tab PO SCH (21:05)
[2023-05-03] MEDS: Acetaminophen 325 MG Tab PO PRN (21:07)
[2023-05-03] MEDS: Magnesium Oxide 400 MG Tab PO SCH (21:09)
[2023-05-03] MEDS: Melatonin 3 MG Tab PO SCH (21:09)
[2023-05-04] MEDS: Acetaminophen/oxyCODONE 325-5 MG Tab PO PRN ×6 (01:39→22:28)
[2023-05-04] MEDS: Metoclopramide 5 MG Tab PO SCH ×5 (05:50→20:22)
[2023-05-04] MEDS: Pantoprazole 40 MG Tab.CR PO SCH ×2 (05:50→07:24)
[2023-05-04] MEDS: Citalopram 20 MG Tab PO SCH (08:33)
[2023-05-04] MEDS: Tamsulosin 0.4 MG Cap.ER PO SCH (08:33)
[2023-05-04] MEDS: Aspirin 81 MG Tab.EC PO SCH (08:34)
[2023-05-04] MEDS: Allopurinol 100 MG Tab PO SCH (08:34)
[2023-05-04] MEDS: Furosemide 40 MG Tab PO SCH (08:35)
[2023-05-04] MEDS: Lisinopril 10 MG Tab PO SCH (08:36)
[2023-05-04] MEDS: Calcitriol 0.25 MCG Cap PO SCH (08:36)
[2023-05-04] MEDS: Isosorbide Mononitrate 30 MG Tab.ER PO SCH ×2 (08:37→20:22)
[2023-05-04] MEDS: Propranolol 20 MG Tab PO SCH ×3 (08:37→20:22)
[2023-05-04] MEDS: Vitamin B Complex Tab PO SCH (08:37)
[2023-05-04] MEDS: Formoterol/Mometasone 200-5 MCG 13 GM Inhaler INH SCH ×2 (08:39→20:17)
[2023-05-04] MEDS: Ketotifen 0.025% Ophth Soln 5 ML Bottle EYEBOTH PRN (08:39)
[2023-05-04] MEDS: Insulin Glarg,Human.Rec.Analog 100 Unit/ML 10 ML Vial SUBCUT SCH (08:39)
[2023-05-04] MEDS: Insulin Lispro 100 Units/ML 3 ML Vial SUBCUT SCH ×4 (08:40→20:21)
[2023-05-04] MEDS: Triamcinolone Acetonide 0.1% Crm 15 GM Tube TOP SCH ×2 (08:42→20:17)
[2023-05-04] MEDS: Polyethylene Glycol 3350 Powder 17 GM Packet PO SCH (20:17)
[2023-05-04] MEDS: Melatonin 3 MG Tab PO SCH (20:22)
[2023-05-04] MEDS: Magnesium Oxide 400 MG Tab PO SCH (20:23)
[2023-05-04] MEDS: ALPRAZolam 0.25 MG Tab PO SCH (20:23)
[2023-05-04] MEDS: Acetaminophen 325 MG Tab PO PRN (22:28)
[2023-05-05] MEDS: Acetaminophen 325 MG Tab PO PRN ×4 (02:25→23:23)
[2023-05-05] MEDS: Acetaminophen/oxyCODONE 325-5 MG Tab PO PRN ×6 (02:26→23:23)
[2023-05-05] MEDS: Pantoprazole 40 MG Tab.CR PO SCH (06:25)
[2023-05-05] MEDS: Metoclopramide 5 MG Tab PO SCH ×4 (06:25→20:20)
[2023-05-05] MEDS: Vitamin B Complex Tab PO SCH (08:24)
[2023-05-05] MEDS: Calcitriol 0.25 MCG Cap PO SCH (08:24)
[2023-05-05] MEDS: Aspirin 81 MG Tab.EC PO SCH (08:24)
[2023-05-05] MEDS: Citalopram 20 MG Tab PO SCH (08:25)
[2023-05-05] MEDS: Furosemide 40 MG Tab PO SCH (08:25)
[2023-05-05] MEDS: Tamsulosin 0.4 MG Cap.ER PO SCH (08:25)
[2023-05-05] MEDS: Insulin Glarg,Human.Rec.Analog 100 Unit/ML 10 ML Vial SUBCUT SCH (08:25)
[2023-05-05] MEDS: Allopurinol 100 MG Tab PO SCH (08:25)
[2023-05-05] MEDS: Formoterol/Mometasone 200-5 MCG 13 GM Inhaler INH SCH ×2 (08:26→20:20)
[2023-05-05] MEDS: Insulin Lispro 100 Units/ML 3 ML Vial SUBCUT SCH ×4 (08:26→20:25)
[2023-05-05] MEDS: Triamcinolone Acetonide 0.1% Crm 15 GM Tube TOP SCH ×2 (08:27→20:20)
[2023-05-05] MEDS: Propranolol 20 MG Tab PO SCH ×3 (08:27→20:21)
[2023-05-05] MEDS: Isosorbide Mononitrate 30 MG Tab.ER PO SCH ×2 (08:28→20:21)
[2023-05-05] MEDS: Lisinopril 10 MG Tab PO SCH (08:28)
[2023-05-05] MEDS: ALPRAZolam 0.25 MG Tab PO SCH (20:18)
[2023-05-05] MEDS: Magnesium Oxide 400 MG Tab PO SCH (20:18)
[2023-05-05] MEDS: Melatonin 3 MG Tab PO SCH (20:20)
[2023-05-05] MEDS: Polyethylene Glycol 3350 Powder 17 GM Packet PO SCH (20:20)
[2023-05-06] MEDS: Acetaminophen 325 MG Tab PO PRN ×2 (03:29→20:52)
[2023-05-06] MEDS: Acetaminophen/oxyCODONE 325-5 MG Tab PO PRN ×5 (03:29→20:52)
[2023-05-06] MEDS: Metoclopramide 5 MG Tab PO SCH ×4 (06:20→20:15)
[2023-05-06] MEDS: Pantoprazole 40 MG Tab.CR PO SCH (06:20)
[2023-05-06] MEDS: Citalopram 20 MG Tab PO SCH (08:17)
[2023-05-06] MEDS: Aspirin 81 MG Tab.EC PO SCH (08:18)
[2023-05-06] MEDS: Tamsulosin 0.4 MG Cap.ER PO SCH (08:18)
[2023-05-06] MEDS: Vitamin B Complex Tab PO SCH (08:19)
[2023-05-06] MEDS: Calcitriol 0.25 MCG Cap PO SCH (08:19)
[2023-05-06] MEDS: Isosorbide Mononitrate 30 MG Tab.ER PO SCH ×2 (08:20→20:15)
[2023-05-06] MEDS: Allopurinol 100 MG Tab PO SCH (08:20)
[2023-05-06] MEDS: Furosemide 40 MG Tab PO SCH (08:21)
[2023-05-06] MEDS: Lisinopril 10 MG Tab PO SCH (08:21)
[2023-05-06] MEDS: Propranolol 20 MG Tab PO SCH ×3 (08:22→20:15)
[2023-05-06] MEDS: Formoterol/Mometasone 200-5 MCG 13 GM Inhaler INH SCH ×2 (08:25→20:12)
[2023-05-06] MEDS: Ketotifen 0.025% Ophth Soln 5 ML Bottle EYEBOTH PRN (08:25)
[2023-05-06] MEDS: Triamcinolone Acetonide 0.1% Crm 15 GM Tube TOP SCH ×2 (08:26→20:12)
[2023-05-06] MEDS: Insulin Lispro 100 Units/ML 3 ML Vial SUBCUT SCH ×4 (08:27→20:15)
[2023-05-06] MEDS: Insulin Glarg,Human.Rec.Analog 100 Unit/ML 10 ML Vial SUBCUT SCH (08:28)
[2023-05-06] MEDS: ALPRAZolam 0.25 MG Tab PO SCH (20:13)
[2023-05-06] MEDS: Magnesium Oxide 400 MG Tab PO SCH (20:13)
[2023-05-06] MEDS: Melatonin 3 MG Tab PO SCH (20:14)
[2023-05-06] MEDS: Polyethylene Glycol 3350 Powder 17 GM Packet PO SCH (20:16)
[2023-05-07] MEDS: Acetaminophen 325 MG Tab PO PRN ×3 (00:49→08:54)
[2023-05-07] MEDS: Acetaminophen/oxyCODONE 325-5 MG Tab PO PRN ×6 (00:49→21:24)
[2023-05-07] MEDS: Metoclopramide 5 MG Tab PO SCH ×4 (06:03→21:19)
[2023-05-07] MEDS: Pantoprazole 40 MG Tab.CR PO SCH (06:03)
[2023-05-07] MEDS: Triamcinolone Acetonide 0.1% Crm 15 GM Tube TOP SCH ×2 (08:55→21:16)
[2023-05-07] MEDS: Insulin Lispro 100 Units/ML 3 ML Vial SUBCUT SCH ×4 (08:56→21:23)
[2023-05-07] MEDS: Insulin Glarg,Human.Rec.Analog 100 Unit/ML 10 ML Vial SUBCUT SCH (08:56)
[2023-05-07] MEDS: Vitamin B Complex Tab PO SCH (08:57)
[2023-05-07] MEDS: Furosemide 40 MG Tab PO SCH (08:57)
[2023-05-07] MEDS: Aspirin 81 MG Tab.EC PO SCH (08:57)
[2023-05-07] MEDS: Allopurinol 100 MG Tab PO SCH (08:57)
[2023-05-07] MEDS: Tamsulosin 0.4 MG Cap.ER PO SCH (08:58)
[2023-05-07] MEDS: Propranolol 20 MG Tab PO SCH ×3 (08:58→21:21)
[2023-05-07] MEDS: Isosorbide Mononitrate 30 MG Tab.ER PO SCH ×2 (08:58→21:22)
[2023-05-07] MEDS: Citalopram 20 MG Tab PO SCH (08:58)
[2023-05-07] MEDS: Lisinopril 10 MG Tab PO SCH (08:58)
[2023-05-07] MEDS: Calcitriol 0.25 MCG Cap PO SCH (08:59)
[2023-05-07] MEDS: Formoterol/Mometasone 200-5 MCG 13 GM Inhaler INH SCH ×2 (08:59→21:23)
[2023-05-07] MEDS: Polyethylene Glycol 3350 Powder 17 GM Packet PO SCH (21:17)
[2023-05-07] MEDS: ALPRAZolam 0.25 MG Tab PO SCH (21:18)
[2023-05-07] MEDS: Magnesium Oxide 400 MG Tab PO SCH (21:19)
[2023-05-07] MEDS: Melatonin 3 MG Tab PO SCH (21:19)
[2023-05-08] MEDS: Acetaminophen/oxyCODONE 325-5 MG Tab PO PRN ×6 (01:35→23:18)
[2023-05-08] MEDS: Pantoprazole 40 MG Tab.CR PO SCH (06:07)
[2023-05-08] MEDS: Metoclopramide 5 MG Tab PO SCH ×4 (06:07→21:22)
[2023-05-08] MEDS: Calcitriol 0.25 MCG Cap PO SCH (08:54)
[2023-05-08] MEDS: Tamsulosin 0.4 MG Cap.ER PO SCH (08:54)
[2023-05-08] MEDS: Aspirin 81 MG Tab.EC PO SCH (08:54)
[2023-05-08] MEDS: Citalopram 20 MG Tab PO SCH (08:54)
[2023-05-08] MEDS: Vitamin B Complex Tab PO SCH (08:54)
[2023-05-08] MEDS: Propranolol 20 MG Tab PO SCH ×3 (08:54→21:21)
[2023-05-08] MEDS: Triamcinolone Acetonide 0.1% Crm 15 GM Tube TOP SCH ×2 (08:55→21:24)
[2023-05-08] MEDS: Lisinopril 10 MG Tab PO SCH (08:55)
[2023-05-08] MEDS: Allopurinol 100 MG Tab PO SCH (08:55)
[2023-05-08] MEDS: Furosemide 40 MG Tab PO SCH (08:55)
[2023-05-08] MEDS: Isosorbide Mononitrate 30 MG Tab.ER PO SCH ×2 (08:55→21:22)
[2023-05-08] MEDS: Formoterol/Mometasone 200-5 MCG 13 GM Inhaler INH SCH ×2 (08:56→21:24)
[2023-05-08] MEDS: Insulin Lispro 100 Units/ML 3 ML Vial SUBCUT SCH ×4 (08:56→21:36)
[2023-05-08] MEDS: Insulin Glarg,Human.Rec.Analog 100 Unit/ML 10 ML Vial SUBCUT SCH (08:56)
[2023-05-08] MEDS: Magnesium Oxide 400 MG Tab PO SCH (21:20)
[2023-05-08] MEDS: Melatonin 3 MG Tab PO SCH (21:22)
[2023-05-08] MEDS: ALPRAZolam 0.25 MG Tab PO SCH (21:22)
[2023-05-08] MEDS: Polyethylene Glycol 3350 Powder 17 GM Packet PO SCH (21:23)
[2023-05-09] MEDS: Acetaminophen/oxyCODONE 325-5 MG Tab PO PRN ×5 (03:18→21:53)
[2023-05-09] MEDS: Pantoprazole 40 MG Tab.CR PO SCH (06:36)
[2023-05-09] MEDS: Metoclopramide 5 MG Tab PO SCH ×4 (06:36→20:48)
[2023-05-09] MEDS: Propranolol 20 MG Tab PO SCH ×3 (08:02→20:49)
[2023-05-09] MEDS: Citalopram 20 MG Tab PO SCH (08:02)
[2023-05-09] MEDS: Tamsulosin 0.4 MG Cap.ER PO SCH (08:02)
[2023-05-09] MEDS: Calcitriol 0.25 MCG Cap PO SCH (08:03)
[2023-05-09] MEDS: Vitamin B Complex Tab PO SCH (08:03)
[2023-05-09] MEDS: Aspirin 81 MG Tab.EC PO SCH (08:03)
[2023-05-09] MEDS: Lisinopril 10 MG Tab PO SCH (08:04)
[2023-05-09] MEDS: Isosorbide Mononitrate 30 MG Tab.ER PO SCH ×2 (08:04→20:50)
[2023-05-09] MEDS: Furosemide 40 MG Tab PO SCH (08:04)
[2023-05-09] MEDS: Allopurinol 100 MG Tab PO SCH (08:04)
[2023-05-09] MEDS: Formoterol/Mometasone 200-5 MCG 13 GM Inhaler INH SCH ×2 (08:04→20:53)
[2023-05-09] MEDS: Insulin Lispro 100 Units/ML 3 ML Vial SUBCUT SCH ×4 (08:04→22:00)
[2023-05-09] MEDS: Insulin Glarg,Human.Rec.Analog 100 Unit/ML 10 ML Vial SUBCUT SCH (08:05)
[2023-05-09] MEDS: Triamcinolone Acetonide 0.1% Crm 15 GM Tube TOP SCH ×2 (08:07→21:55)
[2023-05-09] MEDS: ALPRAZolam 0.25 MG Tab PO SCH (20:48)
[2023-05-09] MEDS: Melatonin 3 MG Tab PO SCH (20:48)
[2023-05-09] MEDS: Magnesium Oxide 400 MG Tab PO SCH (20:48)
[2023-05-09] MEDS: Polyethylene Glycol 3350 Powder 17 GM Packet PO SCH (20:54)
[2023-05-10] MEDS: Acetaminophen/oxyCODONE 325-5 MG Tab PO PRN ×5 (03:40→20:42)
[2023-05-10] MEDS: Pantoprazole 40 MG Tab.CR PO SCH (06:07)
[2023-05-10] MEDS: Metoclopramide 5 MG Tab PO SCH ×4 (06:07→20:38)
[2023-05-10] MEDS: Tamsulosin 0.4 MG Cap.ER PO SCH (08:04)
[2023-05-10] MEDS: Allopurinol 100 MG Tab PO SCH (08:04)
[2023-05-10] MEDS: Lisinopril 10 MG Tab PO SCH (08:04)
[2023-05-10] MEDS: Calcitriol 0.25 MCG Cap PO SCH (08:05)
[2023-05-10] MEDS: Isosorbide Mononitrate 30 MG Tab.ER PO SCH ×2 (08:05→20:38)
[2023-05-10] MEDS: Vitamin B Complex Tab PO SCH (08:06)
[2023-05-10] MEDS: Aspirin 81 MG Tab.EC PO SCH (08:06)
[2023-05-10] MEDS: Citalopram 20 MG Tab PO SCH (08:06)
[2023-05-10] MEDS: Furosemide 40 MG Tab PO SCH (08:06)
[2023-05-10] MEDS: Formoterol/Mometasone 200-5 MCG 13 GM Inhaler INH SCH ×2 (08:07→20:44)
[2023-05-10] MEDS: Triamcinolone Acetonide 0.1% Crm 15 GM Tube TOP SCH ×2 (08:07→20:38)
[2023-05-10] MEDS: Insulin Lispro 100 Units/ML 3 ML Vial SUBCUT SCH ×4 (08:07→20:46)
[2023-05-10] MEDS: Insulin Glarg,Human.Rec.Analog 100 Unit/ML 10 ML Vial SUBCUT SCH (08:08)
[2023-05-10] MEDS: Propranolol 20 MG Tab PO SCH ×3 (08:10→20:39)
[2023-05-10] MEDS: Melatonin 3 MG Tab PO SCH (20:38)
[2023-05-10] MEDS: Magnesium Oxide 400 MG Tab PO SCH (20:38)
[2023-05-10] MEDS: ALPRAZolam 0.25 MG Tab PO SCH (20:39)
[2023-05-10] MEDS: Polyethylene Glycol 3350 Powder 17 GM Packet PO SCH (20:44)
[2023-05-11] MEDS: Acetaminophen/oxyCODONE 325-5 MG Tab PO PRN ×5 (00:54→21:37)
[2023-05-11] MEDS: Pantoprazole 40 MG Tab.CR PO SCH (06:36)
[2023-05-11] MEDS: Metoclopramide 5 MG Tab PO SCH ×4 (06:36→21:27)
[2023-05-11] MEDS: Isosorbide Mononitrate 30 MG Tab.ER PO SCH ×2 (08:34→21:27)
[2023-05-11] MEDS: Aspirin 81 MG Tab.EC PO SCH (08:34)
[2023-05-11] MEDS: Calcitriol 0.25 MCG Cap PO SCH (08:34)
[2023-05-11] MEDS: Tamsulosin 0.4 MG Cap.ER PO SCH (08:34)
[2023-05-11] MEDS: Lisinopril 10 MG Tab PO SCH (08:34)
[2023-05-11] MEDS: Vitamin B Complex Tab PO SCH (08:34)
[2023-05-11] MEDS: Citalopram 20 MG Tab PO SCH (08:34)
[2023-05-11] MEDS: Insulin Glarg,Human.Rec.Analog 100 Unit/ML 10 ML Vial SUBCUT SCH (08:35)
[2023-05-11] MEDS: Formoterol/Mometasone 200-5 MCG 13 GM Inhaler INH SCH ×2 (08:35→21:29)
[2023-05-11] MEDS: Propranolol 20 MG Tab PO SCH ×3 (08:35→21:26)
[2023-05-11] MEDS: Furosemide 40 MG Tab PO SCH (08:35)
[2023-05-11] MEDS: Triamcinolone Acetonide 0.1% Crm 15 GM Tube TOP SCH ×2 (08:35→21:31)
[2023-05-11] MEDS: Allopurinol 100 MG Tab PO SCH (08:35)
[2023-05-11] MEDS: Insulin Lispro 100 Units/ML 3 ML Vial SUBCUT SCH ×4 (08:36→21:33)
[2023-05-11] MEDS: ALPRAZolam 0.25 MG Tab PO SCH (21:26)
[2023-05-11] MEDS: Magnesium Oxide 400 MG Tab PO SCH (21:27)
[2023-05-11] MEDS: Polyethylene Glycol 3350 Powder 17 GM Packet PO SCH (21:28)
[2023-05-11] MEDS: Melatonin 3 MG Tab PO SCH (21:28)
[2023-05-12] MEDS: Acetaminophen/oxyCODONE 325-5 MG Tab PO PRN ×6 (01:51→23:44)
[2023-05-12] MEDS: Metoclopramide 5 MG Tab PO SCH ×4 (06:29→22:03)
[2023-05-12] MEDS: Pantoprazole 40 MG Tab.CR PO SCH (06:29)
[2023-05-12] MEDS: Triamcinolone Acetonide 0.1% Crm 15 GM Tube TOP SCH ×2 (08:16→20:11)
[2023-05-12] MEDS: Formoterol/Mometasone 200-5 MCG 13 GM Inhaler INH SCH ×2 (08:16→22:11)
[2023-05-12] MEDS: Calcitriol 0.25 MCG Cap PO SCH (08:17)
[2023-05-12] MEDS: Tamsulosin 0.4 MG Cap.ER PO SCH (08:17)
[2023-05-12] MEDS: Vitamin B Complex Tab PO SCH (08:17)
[2023-05-12] MEDS: Allopurinol 100 MG Tab PO SCH (08:17)
[2023-05-12] MEDS: Aspirin 81 MG Tab.EC PO SCH (08:17)
[2023-05-12] MEDS: Citalopram 20 MG Tab PO SCH (08:17)
[2023-05-12] MEDS: Furosemide 40 MG Tab PO SCH (08:17)
[2023-05-12] MEDS: Lisinopril 10 MG Tab PO SCH (08:18)
[2023-05-12] MEDS: Isosorbide Mononitrate 30 MG Tab.ER PO SCH ×2 (08:18→22:02)
[2023-05-12] MEDS: Insulin Lispro 100 Units/ML 3 ML Vial SUBCUT SCH ×4 (08:18→22:11)
[2023-05-12] MEDS: Propranolol 20 MG Tab PO SCH ×3 (08:18→22:03)
[2023-05-12] MEDS: Insulin Glarg,Human.Rec.Analog 100 Unit/ML 10 ML Vial SUBCUT SCH (08:19)
[2023-05-12] MEDS: Acetaminophen 325 MG Tab PO PRN ×2 (17:21→19:10)
[2023-05-12] MEDS: Magnesium Oxide 400 MG Tab PO SCH (22:04)
[2023-05-12] MEDS: Melatonin 3 MG Tab PO SCH (22:04)
[2023-05-12] MEDS: ALPRAZolam 0.25 MG Tab PO SCH (22:04)
[2023-05-12] MEDS: Polyethylene Glycol 3350 Powder 17 GM Packet PO SCH (22:11)
[2023-05-13] MEDS: Acetaminophen/oxyCODONE 325-5 MG Tab PO PRN ×5 (04:16→23:18)
[2023-05-13] MEDS: Metoclopramide 5 MG Tab PO SCH ×4 (06:40→20:47)
[2023-05-13] MEDS: Pantoprazole 40 MG Tab.CR PO SCH (06:40)
[2023-05-13] MEDS: Acetaminophen 325 MG Tab PO PRN (06:43)
[2023-05-13] MEDS: Tamsulosin 0.4 MG Cap.ER PO SCH (09:43)
[2023-05-13] MEDS: Formoterol/Mometasone 200-5 MCG 13 GM Inhaler INH SCH ×2 (09:44→21:12)
[2023-05-13] MEDS: Aspirin 81 MG Tab.EC PO SCH (09:44)
[2023-05-13] MEDS: Calcitriol 0.25 MCG Cap PO SCH (09:44)
[2023-05-13] MEDS: Citalopram 20 MG Tab PO SCH (09:45)
[2023-05-13] MEDS: Furosemide 40 MG Tab PO SCH (09:46)
[2023-05-13] MEDS: Vitamin B Complex Tab PO SCH (09:46)
[2023-05-13] MEDS: Allopurinol 100 MG Tab PO SCH (09:46)
[2023-05-13] MEDS: Isosorbide Mononitrate 30 MG Tab.ER PO SCH ×2 (09:47→21:10)
[2023-05-13] MEDS: Lisinopril 10 MG Tab PO SCH (09:47)
[2023-05-13] MEDS: Propranolol 20 MG Tab PO SCH ×3 (09:48→21:10)
[2023-05-13] MEDS: Triamcinolone Acetonide 0.1% Crm 15 GM Tube TOP SCH ×2 (09:50→21:15)
[2023-05-13] MEDS: Insulin Glarg,Human.Rec.Analog 100 Unit/ML 10 ML Vial SUBCUT SCH (09:51)
[2023-05-13] MEDS: Insulin Lispro 100 Units/ML 3 ML Vial SUBCUT SCH ×4 (09:53→21:21)
[2023-05-13] MEDS: Melatonin 3 MG Tab PO SCH (20:47)
[2023-05-13] MEDS: Magnesium Oxide 400 MG Tab PO SCH (20:47)
[2023-05-13] MEDS: ALPRAZolam 0.25 MG Tab PO SCH (20:47)
[2023-05-13] MEDS: Polyethylene Glycol 3350 Powder 17 GM Packet PO SCH (20:49)
[2023-05-14] MEDS: Pantoprazole 40 MG Tab.CR PO SCH (07:20)
[2023-05-14] MEDS: Acetaminophen/oxyCODONE 325-5 MG Tab PO PRN ×5 (07:20→23:57)
[2023-05-14] MEDS: Metoclopramide 5 MG Tab PO SCH ×5 (07:21→20:09)
[2023-05-14] MEDS: Calcitriol 0.25 MCG Cap PO SCH (08:43)
[2023-05-14] MEDS: Aspirin 81 MG Tab.EC PO SCH (08:43)
[2023-05-14] MEDS: Tamsulosin 0.4 MG Cap.ER PO SCH (08:44)
[2023-05-14] MEDS: Citalopram 20 MG Tab PO SCH (08:44)
[2023-05-14] MEDS: Allopurinol 100 MG Tab PO SCH (08:45)
[2023-05-14] MEDS: Vitamin B Complex Tab PO SCH (08:45)
[2023-05-14] MEDS: Isosorbide Mononitrate 30 MG Tab.ER PO SCH ×3 (08:46→20:08)
[2023-05-14] MEDS: Furosemide 40 MG Tab PO SCH (08:46)
[2023-05-14] MEDS: Propranolol 20 MG Tab PO SCH ×4 (08:48→20:08)
[2023-05-14] MEDS: Lisinopril 10 MG Tab PO SCH (08:48)
[2023-05-14] MEDS: Formoterol/Mometasone 200-5 MCG 13 GM Inhaler INH SCH ×2 (08:51→20:04)
[2023-05-14] MEDS: Insulin Glarg,Human.Rec.Analog 100 Unit/ML 10 ML Vial SUBCUT SCH (08:52)
[2023-05-14] MEDS: Insulin Lispro 100 Units/ML 3 ML Vial SUBCUT SCH ×4 (08:54→21:03)
[2023-05-14] MEDS: Ketotifen 0.025% Ophth Soln 5 ML Bottle EYEBOTH PRN (08:56)
[2023-05-14] MEDS: Triamcinolone Acetonide 0.1% Crm 15 GM Tube TOP SCH ×2 (08:57→20:04)
[2023-05-14] MEDS: Acetaminophen 325 MG Tab PO PRN (18:19)
[2023-05-14] MEDS: Polyethylene Glycol 3350 Powder 17 GM Packet PO SCH ×2 (19:56→20:09)
[2023-05-14] MEDS: Melatonin 3 MG Tab PO SCH ×2 (19:58→20:09)
[2023-05-14] MEDS: Magnesium Oxide 400 MG Tab PO SCH ×2 (19:58→20:09)
[2023-05-14] MEDS: ALPRAZolam 0.25 MG Tab PO PRN (23:57)
[2023-05-15] MEDS: Acetaminophen/oxyCODONE 325-5 MG Tab PO PRN ×5 (04:34→21:13)
[2023-05-15] MEDS: Pantoprazole 40 MG Tab.CR PO SCH (06:32)
[2023-05-15] MEDS: Metoclopramide 5 MG Tab PO SCH ×4 (06:32→21:14)
[2023-05-15] MEDS: Formoterol/Mometasone 200-5 MCG 13 GM Inhaler INH SCH ×2 (08:39→21:17)
[2023-05-15] MEDS: Calcitriol 0.25 MCG Cap PO SCH (08:39)
[2023-05-15] MEDS: Citalopram 20 MG Tab PO SCH (08:40)
[2023-05-15] MEDS: Furosemide 40 MG Tab PO SCH (08:40)
[2023-05-15] MEDS: Vitamin B Complex Tab PO SCH (08:40)
[2023-05-15] MEDS: Aspirin 81 MG Tab.EC PO SCH (08:40)
[2023-05-15] MEDS: Tamsulosin 0.4 MG Cap.ER PO SCH (08:40)
[2023-05-15] MEDS: Isosorbide Mononitrate 30 MG Tab.ER PO SCH ×2 (08:41→21:14)
[2023-05-15] MEDS: Propranolol 20 MG Tab PO SCH ×3 (08:41→21:13)
[2023-05-15] MEDS: Allopurinol 100 MG Tab PO SCH (08:41)
[2023-05-15] MEDS: Lisinopril 10 MG Tab PO SCH (08:42)
[2023-05-15] MEDS: Triamcinolone Acetonide 0.1% Crm 15 GM Tube TOP SCH ×2 (08:43→21:14)
[2023-05-15] MEDS: Insulin Glarg,Human.Rec.Analog 100 Unit/ML 10 ML Vial SUBCUT SCH (08:46)
[2023-05-15] MEDS: Insulin Lispro 100 Units/ML 3 ML Vial SUBCUT SCH ×4 (08:47→21:17)
[2023-05-15] MEDS: Polyethylene Glycol 3350 Powder 17 GM Packet PO SCH (21:11)
[2023-05-15] MEDS: ALPRAZolam 0.25 MG Tab PO PRN (21:13)
[2023-05-15] MEDS: Magnesium Oxide 400 MG Tab PO SCH (21:13)
[2023-05-15] MEDS: Melatonin 3 MG Tab PO SCH (21:13)
[2023-05-16] MEDS: Acetaminophen 325 MG Tab PO PRN ×2 (01:27→23:34)
[2023-05-16] MEDS: Acetaminophen/oxyCODONE 325-5 MG Tab PO PRN ×6 (01:27→23:34)
[2023-05-16] MEDS: Pantoprazole 40 MG Tab.CR PO SCH ×2 (05:40→06:44)
[2023-05-16] MEDS: Metoclopramide 5 MG Tab PO SCH ×5 (05:40→20:00)
[2023-05-16] MEDS: Vitamin B Complex Tab PO SCH (08:22)
[2023-05-16] MEDS: Allopurinol 100 MG Tab PO SCH (08:22)
[2023-05-16] MEDS: Isosorbide Mononitrate 30 MG Tab.ER PO SCH ×2 (08:22→20:00)
[2023-05-16] MEDS: Aspirin 81 MG Tab.EC PO SCH (08:23)
[2023-05-16] MEDS: Tamsulosin 0.4 MG Cap.ER PO SCH (08:23)
[2023-05-16] MEDS: Propranolol 20 MG Tab PO SCH ×3 (08:23→20:01)
[2023-05-16] MEDS: Furosemide 40 MG Tab PO SCH (08:23)
[2023-05-16] MEDS: Lisinopril 10 MG Tab PO SCH (08:23)
[2023-05-16] MEDS: Citalopram 20 MG Tab PO SCH (08:23)
[2023-05-16] MEDS: Calcitriol 0.25 MCG Cap PO SCH (08:23)
[2023-05-16] MEDS: Formoterol/Mometasone 200-5 MCG 13 GM Inhaler INH SCH ×2 (08:24→20:00)
[2023-05-16] MEDS: Insulin Glarg,Human.Rec.Analog 100 Unit/ML 10 ML Vial SUBCUT SCH (08:24)
[2023-05-16] MEDS: Triamcinolone Acetonide 0.1% Crm 15 GM Tube TOP SCH ×2 (08:24→19:59)
[2023-05-16] MEDS: Insulin Lispro 100 Units/ML 3 ML Vial SUBCUT SCH ×4 (08:25→20:02)
[2023-05-16] MEDS: Polyethylene Glycol 3350 Powder 17 GM Packet PO SCH (19:59)
[2023-05-16] MEDS: Magnesium Oxide 400 MG Tab PO SCH (20:00)
[2023-05-16] MEDS: ALPRAZolam 0.25 MG Tab PO PRN (20:00)
[2023-05-16] MEDS: Melatonin 3 MG Tab PO SCH (20:02)
[2023-05-17] MEDS: Acetaminophen 325 MG Tab PO PRN ×2 (03:38→21:17)
[2023-05-17] MEDS: Acetaminophen/oxyCODONE 325-5 MG Tab PO PRN ×5 (03:38→21:17)
[2023-05-17] MEDS: Metoclopramide 5 MG Tab PO SCH ×4 (06:27→20:19)
[2023-05-17] MEDS: Pantoprazole 40 MG Tab.CR PO SCH (06:27)
[2023-05-17] MEDS: Isosorbide Mononitrate 30 MG Tab.ER PO SCH ×2 (08:14→20:19)
[2023-05-17] MEDS: Tamsulosin 0.4 MG Cap.ER PO SCH (08:14)
[2023-05-17] MEDS: Aspirin 81 MG Tab.EC PO SCH (08:16)
[2023-05-17] MEDS: Citalopram 20 MG Tab PO SCH (08:16)
[2023-05-17] MEDS: Furosemide 40 MG Tab PO SCH (08:17)
[2023-05-17] MEDS: Calcitriol 0.25 MCG Cap PO SCH (08:17)
[2023-05-17] MEDS: Allopurinol 100 MG Tab PO SCH (08:18)
[2023-05-17] MEDS: Lisinopril 10 MG Tab PO SCH (08:18)
[2023-05-17] MEDS: Vitamin B Complex Tab PO SCH (08:18)
[2023-05-17] MEDS: Propranolol 20 MG Tab PO SCH ×3 (08:19→20:19)
[2023-05-17] MEDS: Formoterol/Mometasone 200-5 MCG 13 GM Inhaler INH SCH ×2 (08:20→20:44)
[2023-05-17] MEDS: Insulin Glarg,Human.Rec.Analog 100 Unit/ML 10 ML Vial SUBCUT SCH (08:22)
[2023-05-17] MEDS: Ketotifen 0.025% Ophth Soln 5 ML Bottle EYEBOTH PRN (08:25)
[2023-05-17] MEDS: Triamcinolone Acetonide 0.1% Crm 15 GM Tube TOP SCH ×2 (08:26→20:44)
[2023-05-17] MEDS: Insulin Lispro 100 Units/ML 3 ML Vial SUBCUT SCH ×4 (08:27→20:44)
[2023-05-17] MEDS: Melatonin 3 MG Tab PO SCH (20:18)
[2023-05-17] MEDS: Polyethylene Glycol 3350 Powder 17 GM Packet PO SCH (20:18)
[2023-05-17] MEDS: Magnesium Oxide 400 MG Tab PO SCH (20:18)
[2023-05-17] MEDS: ALPRAZolam 0.25 MG Tab PO PRN (20:19)
[2023-05-18] MEDS: Acetaminophen/oxyCODONE 325-5 MG Tab PO PRN ×6 (01:07→23:04)
[2023-05-18] MEDS: Acetaminophen 325 MG Tab PO PRN ×3 (01:07→23:03)
[2023-05-18] MEDS: Pantoprazole 40 MG Tab.CR PO SCH (06:09)
[2023-05-18] MEDS: Metoclopramide 5 MG Tab PO SCH ×4 (06:09→20:24)
[2023-05-18] MEDS: Aspirin 81 MG Tab.EC PO SCH (09:34)
[2023-05-18] MEDS: Tamsulosin 0.4 MG Cap.ER PO SCH (09:34)
[2023-05-18] MEDS: Isosorbide Mononitrate 30 MG Tab.ER PO SCH ×2 (09:37→20:23)
[2023-05-18] MEDS: Propranolol 20 MG Tab PO SCH ×3 (09:37→20:23)
[2023-05-18] MEDS: Calcitriol 0.25 MCG Cap PO SCH (09:37)
[2023-05-18] MEDS: Citalopram 20 MG Tab PO SCH (09:39)
[2023-05-18] MEDS: Lisinopril 10 MG Tab PO SCH (09:40)
[2023-05-18] MEDS: Vitamin B Complex Tab PO SCH (09:40)
[2023-05-18] MEDS: Furosemide 40 MG Tab PO SCH (09:41)
[2023-05-18] MEDS: Allopurinol 100 MG Tab PO SCH (09:41)
[2023-05-18] MEDS: Insulin Glarg,Human.Rec.Analog 100 Unit/ML 10 ML Vial SUBCUT SCH (09:47)
[2023-05-18] MEDS: Insulin Lispro 100 Units/ML 3 ML Vial SUBCUT SCH ×4 (09:49→20:27)
[2023-05-18] MEDS: Triamcinolone Acetonide 0.1% Crm 15 GM Tube TOP SCH ×2 (09:51→20:23)
[2023-05-18] MEDS: Formoterol/Mometasone 200-5 MCG 13 GM Inhaler INH SCH ×2 (09:51→20:22)
[2023-05-18] MEDS: Polyethylene Glycol 3350 Powder 17 GM Packet PO SCH (20:23)
[2023-05-18] MEDS: Melatonin 3 MG Tab PO SCH (20:23)
[2023-05-18] MEDS: ALPRAZolam 0.25 MG Tab PO PRN (20:24)
[2023-05-18] MEDS: Magnesium Oxide 400 MG Tab PO SCH (20:24)
[2023-05-19] MEDS: Acetaminophen 325 MG Tab PO PRN ×2 (03:13→21:01)
[2023-05-19] MEDS: Acetaminophen/oxyCODONE 325-5 MG Tab PO PRN ×5 (03:14→21:01)
[2023-05-19] MEDS: Pantoprazole 40 MG Tab.CR PO SCH (06:01)
[2023-05-19] MEDS: Metoclopramide 5 MG Tab PO SCH ×4 (06:01→20:05)
[2023-05-19] MEDS: Vitamin B Complex Tab PO SCH (08:38)
[2023-05-19] MEDS: Triamcinolone Acetonide 0.1% Crm 15 GM Tube TOP SCH ×2 (08:38→20:13)
[2023-05-19] MEDS: Aspirin 81 MG Tab.EC PO SCH (08:38)
[2023-05-19] MEDS: Tamsulosin 0.4 MG Cap.ER PO SCH (08:38)
[2023-05-19] MEDS: Citalopram 20 MG Tab PO SCH (08:39)
[2023-05-19] MEDS: Allopurinol 100 MG Tab PO SCH (08:39)
[2023-05-19] MEDS: Furosemide 40 MG Tab PO SCH (08:39)
[2023-05-19] MEDS: Propranolol 20 MG Tab PO SCH ×3 (08:39→20:05)
[2023-05-19] MEDS: Calcitriol 0.25 MCG Cap PO SCH (08:39)
[2023-05-19] MEDS: Isosorbide Mononitrate 30 MG Tab.ER PO SCH ×2 (08:40→20:05)
[2023-05-19] MEDS: Lisinopril 10 MG Tab PO SCH (08:40)
[2023-05-19] MEDS: Insulin Glarg,Human.Rec.Analog 100 Unit/ML 10 ML Vial SUBCUT SCH (08:41)
[2023-05-19] MEDS: Insulin Lispro 100 Units/ML 3 ML Vial SUBCUT SCH ×4 (08:47→20:06)
[2023-05-19] MEDS: Formoterol/Mometasone 200-5 MCG 13 GM Inhaler INH SCH ×2 (08:47→20:06)
[2023-05-19] MEDS: Melatonin 3 MG Tab PO SCH (20:04)
[2023-05-19] MEDS: ALPRAZolam 0.25 MG Tab PO PRN (20:05)
[2023-05-19] MEDS: Polyethylene Glycol 3350 Powder 17 GM Packet PO SCH (20:05)
[2023-05-19] MEDS: Magnesium Oxide 400 MG Tab PO SCH (20:05)
[2023-05-20] MEDS: Acetaminophen/oxyCODONE 325-5 MG Tab PO PRN ×5 (01:14→21:26)
[2023-05-20] MEDS: Acetaminophen 325 MG Tab PO PRN ×4 (01:14→21:26)
[2023-05-20] MEDS: Pantoprazole 40 MG Tab.CR PO SCH (05:59)
[2023-05-20] MEDS: Metoclopramide 5 MG Tab PO SCH ×4 (05:59→20:09)
[2023-05-20] MEDS: Calcitriol 0.25 MCG Cap PO SCH (09:34)
[2023-05-20] MEDS: Isosorbide Mononitrate 30 MG Tab.ER PO SCH ×2 (09:34→20:08)
[2023-05-20] MEDS: Allopurinol 100 MG Tab PO SCH (09:35)
[2023-05-20] MEDS: Propranolol 20 MG Tab PO SCH ×3 (09:35→20:09)
[2023-05-20] MEDS: Citalopram 20 MG Tab PO SCH (09:36)
[2023-05-20] MEDS: Tamsulosin 0.4 MG Cap.ER PO SCH (09:36)
[2023-05-20] MEDS: Aspirin 81 MG Tab.EC PO SCH (09:38)
[2023-05-20] MEDS: Furosemide 40 MG Tab PO SCH (09:39)
[2023-05-20] MEDS: Vitamin B Complex Tab PO SCH (09:39)
[2023-05-20] MEDS: Formoterol/Mometasone 200-5 MCG 13 GM Inhaler INH SCH ×2 (09:40→20:35)
[2023-05-20] MEDS: Insulin Lispro 100 Units/ML 3 ML Vial SUBCUT SCH ×4 (09:41→20:04)
[2023-05-20] MEDS: Insulin Glarg,Human.Rec.Analog 100 Unit/ML 10 ML Vial SUBCUT SCH (09:42)
[2023-05-20] MEDS: Triamcinolone Acetonide 0.1% Crm 15 GM Tube TOP SCH ×2 (10:49→20:10)
[2023-05-20] MEDS: Lisinopril 10 MG Tab PO SCH (10:49)
[2023-05-20] MEDS: Magnesium Oxide 400 MG Tab PO SCH (20:09)
[2023-05-20] MEDS: Polyethylene Glycol 3350 Powder 17 GM Packet PO SCH (20:09)
[2023-05-20] MEDS: ALPRAZolam 0.25 MG Tab PO PRN (20:09)
[2023-05-20] MEDS: Melatonin 3 MG Tab PO SCH (20:09)
[2023-05-21] MEDS: Acetaminophen/oxyCODONE 325-5 MG Tab PO PRN ×5 (01:28→19:56)
[2023-05-21] MEDS: Acetaminophen 325 MG Tab PO PRN ×2 (01:28→05:33)
[2023-05-21] MEDS: Metoclopramide 5 MG Tab PO SCH ×5 (07:05→20:52)
[2023-05-21] MEDS: Pantoprazole 40 MG Tab.CR PO SCH (07:05)
[2023-05-21] MEDS: Formoterol/Mometasone 200-5 MCG 13 GM Inhaler INH SCH ×2 (08:30→20:51)
[2023-05-21] MEDS: Insulin Glarg,Human.Rec.Analog 100 Unit/ML 10 ML Vial SUBCUT SCH (08:30)
[2023-05-21] MEDS: Insulin Lispro 100 Units/ML 3 ML Vial SUBCUT SCH ×4 (08:31→20:52)
[2023-05-21] MEDS: Isosorbide Mononitrate 30 MG Tab.ER PO SCH ×3 (08:32→20:52)
[2023-05-21] MEDS: Propranolol 20 MG Tab PO SCH ×4 (08:32→20:52)
[2023-05-21] MEDS: Allopurinol 100 MG Tab PO SCH (08:32)
[2023-05-21] MEDS: Aspirin 81 MG Tab.EC PO SCH (08:32)
[2023-05-21] MEDS: Calcitriol 0.25 MCG Cap PO SCH (08:34)
[2023-05-21] MEDS: Lisinopril 10 MG Tab PO SCH (08:34)
[2023-05-21] MEDS: Tamsulosin 0.4 MG Cap.ER PO SCH (08:34)
[2023-05-21] MEDS: Triamcinolone Acetonide 0.1% Crm 15 GM Tube TOP SCH ×2 (08:34→20:52)
[2023-05-21] MEDS: Citalopram 20 MG Tab PO SCH (08:34)
[2023-05-21] MEDS: Vitamin B Complex Tab PO SCH (08:34)
[2023-05-21] MEDS: Furosemide 40 MG Tab PO SCH (08:34)
[2023-05-21] MEDS: Polyethylene Glycol 3350 Powder 17 GM Packet PO SCH ×2 (19:54→20:52)
[2023-05-21] MEDS: ALPRAZolam 0.25 MG Tab PO PRN (19:55)
[2023-05-21] MEDS: Magnesium Oxide 400 MG Tab PO SCH ×2 (19:55→20:52)
[2023-05-21] MEDS: Melatonin 3 MG Tab PO SCH ×2 (19:56→20:52)
[2023-05-22] MEDS: Acetaminophen/oxyCODONE 325-5 MG Tab PO PRN ×5 (00:08→21:33)
[2023-05-22] MEDS: Acetaminophen 325 MG Tab PO PRN (03:39)
[2023-05-22] MEDS: Pantoprazole 40 MG Tab.CR PO SCH ×2 (05:14→06:09)
[2023-05-22] MEDS: Metoclopramide 5 MG Tab PO SCH ×5 (05:14→21:32)
[2023-05-22] MEDS: Tamsulosin 0.4 MG Cap.ER PO SCH (08:15)
[2023-05-22] MEDS: Allopurinol 100 MG Tab PO SCH (08:17)
[2023-05-22] MEDS: Aspirin 81 MG Tab.EC PO SCH (08:18)
[2023-05-22] MEDS: Isosorbide Mononitrate 30 MG Tab.ER PO SCH ×2 (08:19→21:31)
[2023-05-22] MEDS: Lisinopril 10 MG Tab PO SCH (08:19)
[2023-05-22] MEDS: Furosemide 40 MG Tab PO SCH (08:19)
[2023-05-22] MEDS: Vitamin B Complex Tab PO SCH (08:20)
[2023-05-22] MEDS: Propranolol 20 MG Tab PO SCH ×3 (08:20→21:32)
[2023-05-22] MEDS: Calcitriol 0.25 MCG Cap PO SCH (08:20)
[2023-05-22] MEDS: Citalopram 20 MG Tab PO SCH (08:21)
[2023-05-22] MEDS: Insulin Lispro 100 Units/ML 3 ML Vial SUBCUT SCH ×4 (08:22→21:34)
[2023-05-22] MEDS: Insulin Glarg,Human.Rec.Analog 100 Unit/ML 10 ML Vial SUBCUT SCH (08:25)
[2023-05-22] MEDS: Formoterol/Mometasone 200-5 MCG 13 GM Inhaler INH SCH ×2 (08:26→21:33)
[2023-05-22] MEDS: Triamcinolone Acetonide 0.1% Crm 15 GM Tube TOP SCH ×2 (08:27→21:35)
[2023-05-22] MEDS: Polyethylene Glycol 3350 Powder 17 GM Packet PO SCH (21:31)
[2023-05-22] MEDS: Melatonin 3 MG Tab PO SCH (21:32)
[2023-05-22] MEDS: Magnesium Oxide 400 MG Tab PO SCH (21:32)
[2023-05-22] MEDS: Ketotifen 0.025% Ophth Soln 5 ML Bottle EYEBOTH PRN (21:35)
[2023-05-22] MEDS: ALPRAZolam 0.25 MG Tab PO PRN (21:39)
[2023-05-23] MEDS: Pantoprazole 40 MG Tab.CR PO SCH (07:27)
[2023-05-23] MEDS: Acetaminophen/oxyCODONE 325-5 MG Tab PO PRN ×4 (07:27→21:23)
[2023-05-23] MEDS: Metoclopramide 5 MG Tab PO SCH ×4 (07:27→21:22)
[2023-05-23] MEDS: Isosorbide Mononitrate 30 MG Tab.ER PO SCH ×2 (09:14→21:23)
[2023-05-23] MEDS: Tamsulosin 0.4 MG Cap.ER PO SCH (09:15)
[2023-05-23] MEDS: Citalopram 20 MG Tab PO SCH (09:15)
[2023-05-23] MEDS: Aspirin 81 MG Tab.EC PO SCH (09:16)
[2023-05-23] MEDS: Vitamin B Complex Tab PO SCH (09:17)
[2023-05-23] MEDS: Calcitriol 0.25 MCG Cap PO SCH (09:17)
[2023-05-23] MEDS: Furosemide 40 MG Tab PO SCH (09:17)
[2023-05-23] MEDS: Allopurinol 100 MG Tab PO SCH (09:18)
[2023-05-23] MEDS: Lisinopril 10 MG Tab PO SCH (09:18)
[2023-05-23] MEDS: Propranolol 20 MG Tab PO SCH ×3 (09:19→21:22)
[2023-05-23] MEDS: Formoterol/Mometasone 200-5 MCG 13 GM Inhaler INH SCH ×2 (09:20→21:24)
[2023-05-23] MEDS: Insulin Glarg,Human.Rec.Analog 100 Unit/ML 10 ML Vial SUBCUT SCH (09:22)
[2023-05-23] MEDS: Insulin Lispro 100 Units/ML 3 ML Vial SUBCUT SCH ×4 (09:23→21:25)
[2023-05-23] MEDS: Triamcinolone Acetonide 0.1% Crm 15 GM Tube TOP SCH ×2 (09:24→21:21)
[2023-05-23] MEDS: Polyethylene Glycol 3350 Powder 17 GM Packet PO SCH (21:21)
[2023-05-23] MEDS: Magnesium Oxide 400 MG Tab PO SCH (21:22)
[2023-05-23] MEDS: ALPRAZolam 0.25 MG Tab PO PRN (21:23)
[2023-05-23] MEDS: Melatonin 3 MG Tab PO SCH (21:23)
[2023-05-23] MEDS: Ketotifen 0.025% Ophth Soln 5 ML Bottle EYEBOTH PRN (21:29)
[2023-05-24] MEDS: Metoclopramide 5 MG Tab PO SCH ×5 (04:38→21:44)
[2023-05-24] MEDS: Pantoprazole 40 MG Tab.CR PO SCH ×2 (04:38→06:37)
[2023-05-24] MEDS: Acetaminophen/oxyCODONE 325-5 MG Tab PO PRN ×4 (04:38→21:44)
[2023-05-24] MEDS: Tamsulosin 0.4 MG Cap.ER PO SCH (08:28)
[2023-05-24] MEDS: Citalopram 20 MG Tab PO SCH (08:29)
[2023-05-24] MEDS: Aspirin 81 MG Tab.EC PO SCH (08:29)
[2023-05-24] MEDS: Vitamin B Complex Tab PO SCH (08:30)
[2023-05-24] MEDS: Calcitriol 0.25 MCG Cap PO SCH (08:30)
[2023-05-24] MEDS: Isosorbide Mononitrate 30 MG Tab.ER PO SCH ×2 (08:31→21:44)
[2023-05-24] MEDS: Furosemide 40 MG Tab PO SCH (08:31)
[2023-05-24] MEDS: Allopurinol 100 MG Tab PO SCH (08:31)
[2023-05-24] MEDS: Insulin Lispro 100 Units/ML 3 ML Vial SUBCUT SCH ×4 (08:33→21:50)
[2023-05-24] MEDS: Lisinopril 10 MG Tab PO SCH (08:33)
[2023-05-24] MEDS: Propranolol 20 MG Tab PO SCH ×3 (08:34→21:45)
[2023-05-24] MEDS: Triamcinolone Acetonide 0.1% Crm 15 GM Tube TOP SCH ×2 (08:35→21:46)
[2023-05-24] MEDS: Formoterol/Mometasone 200-5 MCG 13 GM Inhaler INH SCH ×2 (08:36→21:45)
[2023-05-24] MEDS: Insulin Glarg,Human.Rec.Analog 100 Unit/ML 10 ML Vial SUBCUT SCH (08:37)
[2023-05-24] MEDS: Polyethylene Glycol 3350 Powder 17 GM Packet PO SCH (21:43)
[2023-05-24] MEDS: Magnesium Oxide 400 MG Tab PO SCH (21:44)
[2023-05-24] MEDS: ALPRAZolam 0.25 MG Tab PO PRN (21:44)
[2023-05-24] MEDS: Melatonin 3 MG Tab PO SCH (21:45)
[2023-05-24] MEDS: Ketotifen 0.025% Ophth Soln 5 ML Bottle EYEBOTH PRN (21:46)
[2023-05-25] MEDS: Acetaminophen/oxyCODONE 325-5 MG Tab PO PRN ×4 (03:50→21:11)
[2023-05-25] MEDS: Metoclopramide 5 MG Tab PO SCH ×4 (06:40→21:09)
[2023-05-25] MEDS: Pantoprazole 40 MG Tab.CR PO SCH (06:40)
[2023-05-25] MEDS: Aspirin 81 MG Tab.EC PO SCH (08:05)
[2023-05-25] MEDS: Tamsulosin 0.4 MG Cap.ER PO SCH (08:06)
[2023-05-25] MEDS: Citalopram 20 MG Tab PO SCH (08:06)
[2023-05-25] MEDS: Isosorbide Mononitrate 30 MG Tab.ER PO SCH ×2 (08:07→21:11)
[2023-05-25] MEDS: Vitamin B Complex Tab PO SCH (08:07)
[2023-05-25] MEDS: Furosemide 40 MG Tab PO SCH (08:07)
[2023-05-25] MEDS: Calcitriol 0.25 MCG Cap PO SCH (08:07)
[2023-05-25] MEDS: Propranolol 20 MG Tab PO SCH ×3 (08:08→21:10)
[2023-05-25] MEDS: Allopurinol 100 MG Tab PO SCH (08:08)
[2023-05-25] MEDS: Lisinopril 10 MG Tab PO SCH (08:09)
[2023-05-25] MEDS: Insulin Glarg,Human.Rec.Analog 100 Unit/ML 10 ML Vial SUBCUT SCH (08:11)
[2023-05-25] MEDS: Triamcinolone Acetonide 0.1% Crm 15 GM Tube TOP SCH ×2 (08:13→21:15)
[2023-05-25] MEDS: Formoterol/Mometasone 200-5 MCG 13 GM Inhaler INH SCH ×2 (08:14→21:16)
[2023-05-25] MEDS: Insulin Lispro 100 Units/ML 3 ML Vial SUBCUT SCH ×4 (08:14→21:07)
[2023-05-25] MEDS: Polyethylene Glycol 3350 Powder 17 GM Packet PO SCH (21:07)
[2023-05-25] MEDS: Magnesium Oxide 400 MG Tab PO SCH (21:08)
[2023-05-25] MEDS: Melatonin 3 MG Tab PO SCH (21:11)
[2023-05-25] MEDS: ALPRAZolam 0.25 MG Tab PO PRN (21:11)
[2023-05-26] MEDS: Acetaminophen/oxyCODONE 325-5 MG Tab PO PRN ×6 (01:21→22:41)
[2023-05-26] MEDS: Pantoprazole 40 MG Tab.CR PO SCH (06:44)
[2023-05-26] MEDS: Metoclopramide 5 MG Tab PO SCH ×4 (06:44→20:32)
[2023-05-26] MEDS: Formoterol/Mometasone 200-5 MCG 13 GM Inhaler INH SCH ×2 (09:37→20:32)
[2023-05-26] MEDS: Triamcinolone Acetonide 0.1% Crm 15 GM Tube TOP SCH ×2 (09:38→20:35)
[2023-05-26] MEDS: Insulin Glarg,Human.Rec.Analog 100 Unit/ML 10 ML Vial SUBCUT SCH (09:39)
[2023-05-26] MEDS: Tamsulosin 0.4 MG Cap.ER PO SCH (09:40)
[2023-05-26] MEDS: Citalopram 20 MG Tab PO SCH (09:40)
[2023-05-26] MEDS: Allopurinol 100 MG Tab PO SCH (09:41)
[2023-05-26] MEDS: Vitamin B Complex Tab PO SCH (09:41)
[2023-05-26] MEDS: Calcitriol 0.25 MCG Cap PO SCH (09:41)
[2023-05-26] MEDS: Isosorbide Mononitrate 30 MG Tab.ER PO SCH ×2 (09:41→20:31)
[2023-05-26] MEDS: Lisinopril 10 MG Tab PO SCH (09:42)
[2023-05-26] MEDS: Aspirin 81 MG Tab.EC PO SCH (09:42)
[2023-05-26] MEDS: Propranolol 20 MG Tab PO SCH ×3 (09:43→20:27)
[2023-05-26] MEDS: Furosemide 40 MG Tab PO SCH (09:43)
[2023-05-26] MEDS: Insulin Lispro 100 Units/ML 3 ML Vial SUBCUT SCH ×4 (10:13→20:34)
[2023-05-26] MEDS: Magnesium Oxide 400 MG Tab PO SCH (20:30)
[2023-05-26] MEDS: Melatonin 3 MG Tab PO SCH (20:32)
[2023-05-26] MEDS: Polyethylene Glycol 3350 Powder 17 GM Packet PO SCH (20:33)
[2023-05-27] MEDS: ALPRAZolam 0.25 MG Tab PO PRN (01:18)
[2023-05-27] MEDS: Metoclopramide 5 MG Tab PO SCH ×4 (06:31→20:29)
[2023-05-27] MEDS: Pantoprazole 40 MG Tab.CR PO SCH (06:31)
[2023-05-27] MEDS: Allopurinol 100 MG Tab PO SCH (08:20)
[2023-05-27] MEDS: Tamsulosin 0.4 MG Cap.ER PO SCH (08:20)
[2023-05-27] MEDS: Citalopram 20 MG Tab PO SCH (08:21)
[2023-05-27] MEDS: Aspirin 81 MG Tab.EC PO SCH (08:21)
[2023-05-27] MEDS: Vitamin B Complex Tab PO SCH (08:22)
[2023-05-27] MEDS: Isosorbide Mononitrate 30 MG Tab.ER PO SCH ×2 (08:23→20:28)
[2023-05-27] MEDS: Furosemide 40 MG Tab PO SCH (08:23)
[2023-05-27] MEDS: Calcitriol 0.25 MCG Cap PO SCH (08:24)
[2023-05-27] MEDS: Lisinopril 10 MG Tab PO SCH (08:24)
[2023-05-27] MEDS: Propranolol 20 MG Tab PO SCH ×3 (08:25→20:29)
[2023-05-27] MEDS: Acetaminophen/oxyCODONE 325-5 MG Tab PO PRN ×4 (08:25→21:49)
[2023-05-27] MEDS: Formoterol/Mometasone 200-5 MCG 13 GM Inhaler INH SCH ×2 (08:27→20:27)
[2023-05-27] MEDS: Insulin Lispro 100 Units/ML 3 ML Vial SUBCUT SCH ×4 (08:29→20:30)
[2023-05-27] MEDS: Triamcinolone Acetonide 0.1% Crm 15 GM Tube TOP SCH ×2 (08:31→20:35)
[2023-05-27] MEDS: Insulin Glarg,Human.Rec.Analog 100 Unit/ML 10 ML Vial SUBCUT SCH (08:33)
[2023-05-27] MEDS: Melatonin 3 MG Tab PO SCH (20:28)
[2023-05-27] MEDS: Polyethylene Glycol 3350 Powder 17 GM Packet PO SCH (20:28)
[2023-05-27] MEDS: Magnesium Oxide 400 MG Tab PO SCH (20:29)
[2023-05-28] MEDS: Acetaminophen/oxyCODONE 325-5 MG Tab PO PRN ×5 (03:02→22:38)
[2023-05-28] MEDS: Metoclopramide 5 MG Tab PO SCH ×4 (06:17→20:48)
[2023-05-28] MEDS: Pantoprazole 40 MG Tab.CR PO SCH (06:17)
[2023-05-28] MEDS: Tamsulosin 0.4 MG Cap.ER PO SCH (08:10)
[2023-05-28] MEDS: Vitamin B Complex Tab PO SCH (08:10)
[2023-05-28] MEDS: Citalopram 20 MG Tab PO SCH (08:10)
[2023-05-28] MEDS: Calcitriol 0.25 MCG Cap PO SCH (08:10)
[2023-05-28] MEDS: Aspirin 81 MG Tab.EC PO SCH (08:11)
[2023-05-28] MEDS: Isosorbide Mononitrate 30 MG Tab.ER PO SCH ×2 (08:11→20:48)
[2023-05-28] MEDS: Furosemide 40 MG Tab PO SCH (08:13)
[2023-05-28] MEDS: Allopurinol 100 MG Tab PO SCH (08:14)
[2023-05-28] MEDS: Lisinopril 10 MG Tab PO SCH (08:14)
[2023-05-28] MEDS: Propranolol 20 MG Tab PO SCH ×3 (08:16→20:49)
[2023-05-28] MEDS: Triamcinolone Acetonide 0.1% Crm 15 GM Tube TOP SCH ×2 (08:18→20:54)
[2023-05-28] MEDS: Formoterol/Mometasone 200-5 MCG 13 GM Inhaler INH SCH ×2 (08:18→20:55)
[2023-05-28] MEDS: Insulin Glarg,Human.Rec.Analog 100 Unit/ML 10 ML Vial SUBCUT SCH (08:19)
[2023-05-28] MEDS: Insulin Lispro 100 Units/ML 3 ML Vial SUBCUT SCH ×4 (08:21→20:54)
[2023-05-28] MEDS: Polyethylene Glycol 3350 Powder 17 GM Packet PO SCH (20:42)
[2023-05-28] MEDS: Melatonin 3 MG Tab PO SCH (20:48)
[2023-05-28] MEDS: Magnesium Oxide 400 MG Tab PO SCH (20:49)
[2023-05-28] MEDS: ALPRAZolam 0.25 MG Tab PO PRN (20:57)
[2023-05-29] MEDS: Acetaminophen/oxyCODONE 325-5 MG Tab PO PRN ×5 (05:25→23:54)
[2023-05-29] MEDS: Pantoprazole 40 MG Tab.CR PO SCH ×2 (05:32→06:09)
[2023-05-29] MEDS: Metoclopramide 5 MG Tab PO SCH ×5 (05:32→20:05)
[2023-05-29] MEDS: Tamsulosin 0.4 MG Cap.ER PO SCH (08:43)
[2023-05-29] MEDS: Isosorbide Mononitrate 30 MG Tab.ER PO SCH ×2 (08:43→20:04)
[2023-05-29] MEDS: Calcitriol 0.25 MCG Cap PO SCH (08:43)
[2023-05-29] MEDS: Vitamin B Complex Tab PO SCH (08:44)
[2023-05-29] MEDS: Aspirin 81 MG Tab.EC PO SCH (08:44)
[2023-05-29] MEDS: Citalopram 20 MG Tab PO SCH (08:44)
[2023-05-29] MEDS: Allopurinol 100 MG Tab PO SCH (08:44)
[2023-05-29] MEDS: Lisinopril 10 MG Tab PO SCH (08:44)
[2023-05-29] MEDS: Formoterol/Mometasone 200-5 MCG 13 GM Inhaler INH SCH ×2 (08:45→20:05)
[2023-05-29] MEDS: Propranolol 20 MG Tab PO SCH ×3 (08:45→20:05)
[2023-05-29] MEDS: Triamcinolone Acetonide 0.1% Crm 15 GM Tube TOP SCH ×2 (08:45→20:05)
[2023-05-29] MEDS: Furosemide 40 MG Tab PO SCH (08:45)
[2023-05-29] MEDS: Insulin Glarg,Human.Rec.Analog 100 Unit/ML 10 ML Vial SUBCUT SCH (08:49)
[2023-05-29] MEDS: Acetaminophen 325 MG Tab PO PRN ×2 (20:03→23:54)
[2023-05-29] MEDS: Polyethylene Glycol 3350 Powder 17 GM Packet PO SCH (20:03)
[2023-05-29] MEDS: Magnesium Oxide 400 MG Tab PO SCH (20:04)
[2023-05-29] MEDS: Melatonin 3 MG Tab PO SCH (20:04)
[2023-05-30] MEDS: Acetaminophen 325 MG Tab PO PRN ×2 (04:08→21:05)
[2023-05-30] MEDS: Acetaminophen/oxyCODONE 325-5 MG Tab PO PRN ×5 (04:08→21:05)
[2023-05-30] MEDS: Metoclopramide 5 MG Tab PO SCH ×4 (06:07→20:00)
[2023-05-30] MEDS: Pantoprazole 40 MG Tab.CR PO SCH (06:08)
[2023-05-30] MEDS: Formoterol/Mometasone 200-5 MCG 13 GM Inhaler INH SCH ×2 (08:12→20:02)
[2023-05-30] MEDS: Insulin Glarg,Human.Rec.Analog 100 Unit/ML 10 ML Vial SUBCUT SCH (08:13)
[2023-05-30] MEDS: Tamsulosin 0.4 MG Cap.ER PO SCH (08:13)
[2023-05-30] MEDS: Vitamin B Complex Tab PO SCH (08:14)
[2023-05-30] MEDS: Aspirin 81 MG Tab.EC PO SCH (08:14)
[2023-05-30] MEDS: Citalopram 20 MG Tab PO SCH (08:14)
[2023-05-30] MEDS: Propranolol 20 MG Tab PO SCH ×3 (08:14→20:00)
[2023-05-30] MEDS: Furosemide 40 MG Tab PO SCH (08:14)
[2023-05-30] MEDS: Allopurinol 100 MG Tab PO SCH (08:14)
[2023-05-30] MEDS: Calcitriol 0.25 MCG Cap PO SCH (08:14)
[2023-05-30] MEDS: Lisinopril 10 MG Tab PO SCH (08:16)
[2023-05-30] MEDS: Isosorbide Mononitrate 30 MG Tab.ER PO SCH ×2 (08:16→20:00)
[2023-05-30] MEDS: Triamcinolone Acetonide 0.1% Crm 15 GM Tube TOP SCH ×2 (08:16→20:01)
[2023-05-30] MEDS: Polyethylene Glycol 3350 Powder 17 GM Packet PO SCH (19:59)
[2023-05-30] MEDS: Melatonin 3 MG Tab PO SCH (20:00)
[2023-05-30] MEDS: Magnesium Oxide 400 MG Tab PO SCH (20:00)
[2023-05-30] MEDS: ALPRAZolam 0.25 MG Tab PO PRN (20:00)
[2023-05-31] MEDS: Acetaminophen/oxyCODONE 325-5 MG Tab PO PRN ×3 (00:52→09:53)
[2023-05-31] MEDS: Acetaminophen 325 MG Tab PO PRN ×4 (00:53→22:01)
[2023-05-31] MEDS: Metoclopramide 5 MG Tab PO SCH ×4 (06:19→20:08)
[2023-05-31] MEDS: Pantoprazole 40 MG Tab.CR PO SCH (06:19)
[2023-05-31] MEDS: Tamsulosin 0.4 MG Cap.ER PO SCH (09:44)
[2023-05-31] MEDS: Vitamin B Complex Tab PO SCH (09:45)
[2023-05-31] MEDS: Citalopram 20 MG Tab PO SCH (09:46)
[2023-05-31] MEDS: Propranolol 20 MG Tab PO SCH ×3 (09:46→20:08)
[2023-05-31] MEDS: Furosemide 40 MG Tab PO SCH (09:47)
[2023-05-31] MEDS: Calcitriol 0.25 MCG Cap PO SCH (09:48)
[2023-05-31] MEDS: Aspirin 81 MG Tab.EC PO SCH (09:49)
[2023-05-31] MEDS: Lisinopril 10 MG Tab PO SCH (09:50)
[2023-05-31] MEDS: Isosorbide Mononitrate 30 MG Tab.ER PO SCH ×2 (09:51→20:08)
[2023-05-31] MEDS: Allopurinol 100 MG Tab PO SCH (09:52)
[2023-05-31] MEDS: Formoterol/Mometasone 200-5 MCG 13 GM Inhaler INH SCH ×2 (09:56→20:09)
[2023-05-31] MEDS: Insulin Glarg,Human.Rec.Analog 100 Unit/ML 10 ML Vial SUBCUT SCH (09:56)
[2023-05-31] MEDS: Triamcinolone Acetonide 0.1% Crm 15 GM Tube TOP SCH ×2 (10:03→20:09)
[2023-05-31] MEDS ORDERED: Acetaminophen/oxyCODONE 325-5 MG Tab PO PRN (11:30)
[2023-05-31] MEDS: Melatonin 3 MG Tab PO SCH (20:07)
[2023-05-31] MEDS: Polyethylene Glycol 3350 Powder 17 GM Packet PO SCH (20:07)
[2023-05-31] MEDS: Magnesium Oxide 400 MG Tab PO SCH (20:08)
[2023-05-31] MEDS: ALPRAZolam 0.25 MG Tab PO PRN (20:08)
[2023-06-01] MEDS: Pantoprazole 40 MG Tab.CR PO SCH (06:07)
[2023-06-01] MEDS: Metoclopramide 5 MG Tab PO SCH ×4 (06:07→20:03)
[2023-06-01] MEDS: Tamsulosin 0.4 MG Cap.ER PO SCH (09:52)
[2023-06-01] MEDS: Calcitriol 0.25 MCG Cap PO SCH (09:52)
[2023-06-01] MEDS: Aspirin 81 MG Tab.EC PO SCH (09:53)
[2023-06-01] MEDS: Vitamin B Complex Tab PO SCH (09:53)
[2023-06-01] MEDS: Isosorbide Mononitrate 30 MG Tab.ER PO SCH ×2 (09:55→20:02)
[2023-06-01] MEDS: Citalopram 20 MG Tab PO SCH (09:55)
[2023-06-01] MEDS: Furosemide 40 MG Tab PO SCH (09:56)
[2023-06-01] MEDS: Allopurinol 100 MG Tab PO SCH (09:56)
[2023-06-01] MEDS: Acetaminophen/HYDROcodone 325-5 MG Tab PO PRN ×4 (09:57→21:59)
[2023-06-01] MEDS: Lisinopril 10 MG Tab PO SCH (09:57)
[2023-06-01] MEDS: Propranolol 20 MG Tab PO SCH ×3 (10:03→20:02)
[2023-06-01] MEDS: Formoterol/Mometasone 200-5 MCG 13 GM Inhaler INH SCH ×2 (10:05→20:02)
[2023-06-01] MEDS: Insulin Glarg,Human.Rec.Analog 100 Unit/ML 10 ML Vial SUBCUT SCH (10:06)
[2023-06-01] MEDS: Triamcinolone Acetonide 0.1% Crm 15 GM Tube TOP SCH ×2 (10:09→20:01)
[2023-06-01] MEDS: Melatonin 3 MG Tab PO SCH (20:02)
[2023-06-01] MEDS: Polyethylene Glycol 3350 Powder 17 GM Packet PO SCH (20:02)
[2023-06-01] MEDS: ALPRAZolam 0.25 MG Tab PO PRN (20:02)
[2023-06-01] MEDS: Magnesium Oxide 400 MG Tab PO SCH (20:02)
[2023-06-01] MEDS: Acetaminophen 325 MG Tab PO PRN (22:00)
[2023-06-02] MEDS: Acetaminophen/HYDROcodone 325-5 MG Tab PO PRN ×5 (01:53→20:32)
[2023-06-02] MEDS: Metoclopramide 5 MG Tab PO SCH ×4 (06:01→20:32)
[2023-06-02] MEDS: Pantoprazole 40 MG Tab.CR PO SCH (06:01)
[2023-06-02] MEDS: Tamsulosin 0.4 MG Cap.ER PO SCH (08:44)
[2023-06-02] MEDS: Citalopram 20 MG Tab PO SCH (08:45)
[2023-06-02] MEDS: Aspirin 81 MG Tab.EC PO SCH (08:45)
[2023-06-02] MEDS: Vitamin B Complex Tab PO SCH (08:46)
[2023-06-02] MEDS: Calcitriol 0.25 MCG Cap PO SCH (08:46)
[2023-06-02] MEDS: Furosemide 40 MG Tab PO SCH (08:46)
[2023-06-02] MEDS: Isosorbide Mononitrate 30 MG Tab.ER PO SCH ×2 (08:47→20:32)
[2023-06-02] MEDS: Allopurinol 100 MG Tab PO SCH (08:47)
[2023-06-02] MEDS: Lisinopril 10 MG Tab PO SCH (08:48)
[2023-06-02] MEDS: Propranolol 20 MG Tab PO SCH ×3 (08:49→20:32)
[2023-06-02] MEDS: Formoterol/Mometasone 200-5 MCG 13 GM Inhaler INH SCH ×2 (08:51→20:34)
[2023-06-02] MEDS: Insulin Glarg,Human.Rec.Analog 100 Unit/ML 10 ML Vial SUBCUT SCH (08:51)
[2023-06-02] MEDS: Triamcinolone Acetonide 0.1% Crm 15 GM Tube TOP SCH ×2 (08:53→20:34)
[2023-06-02] MEDS: Melatonin 3 MG Tab PO SCH (20:32)
[2023-06-02] MEDS: ALPRAZolam 0.25 MG Tab PO PRN (20:32)
[2023-06-02] MEDS: Magnesium Oxide 400 MG Tab PO SCH (20:32)
[2023-06-02] MEDS: Polyethylene Glycol 3350 Powder 17 GM Packet PO SCH (20:32)
[2023-06-03] MEDS: Acetaminophen/HYDROcodone 325-5 MG Tab PO PRN ×6 (00:45→23:16)
[2023-06-03] MEDS: Metoclopramide 5 MG Tab PO SCH ×4 (06:11→20:09)
[2023-06-03] MEDS: Pantoprazole 40 MG Tab.CR PO SCH (06:11)
[2023-06-03] MEDS: Aspirin 81 MG Tab.EC PO SCH (08:14)
[2023-06-03] MEDS: Tamsulosin 0.4 MG Cap.ER PO SCH (08:14)
[2023-06-03] MEDS: Citalopram 20 MG Tab PO SCH (08:15)
[2023-06-03] MEDS: Calcitriol 0.25 MCG Cap PO SCH (08:16)
[2023-06-03] MEDS: Furosemide 40 MG Tab PO SCH (08:16)
[2023-06-03] MEDS: Allopurinol 100 MG Tab PO SCH (08:17)
[2023-06-03] MEDS: Vitamin B Complex Tab PO SCH (08:17)
[2023-06-03] MEDS: Isosorbide Mononitrate 30 MG Tab.ER PO SCH ×2 (08:18→20:09)
[2023-06-03] MEDS: Lisinopril 10 MG Tab PO SCH (08:18)
[2023-06-03] MEDS: Propranolol 20 MG Tab PO SCH ×3 (08:19→20:09)
[2023-06-03] MEDS: Formoterol/Mometasone 200-5 MCG 13 GM Inhaler INH SCH ×2 (08:20→20:08)
[2023-06-03] MEDS: Triamcinolone Acetonide 0.1% Crm 15 GM Tube TOP SCH ×2 (08:20→20:08)
[2023-06-03] MEDS: Insulin Glarg,Human.Rec.Analog 100 Unit/ML 10 ML Vial SUBCUT SCH (08:21)
[2023-06-03] MEDS: Ketotifen 0.025% Ophth Soln 5 ML Bottle EYEBOTH PRN (08:23)
[2023-06-03] MEDS: Melatonin 3 MG Tab PO SCH (20:08)
[2023-06-03] MEDS: Polyethylene Glycol 3350 Powder 17 GM Packet PO SCH (20:08)
[2023-06-03] MEDS: Magnesium Oxide 400 MG Tab PO SCH (20:08)
[2023-06-03] MEDS: ALPRAZolam 0.25 MG Tab PO PRN (20:09)
[2023-06-04] MEDS: Acetaminophen/HYDROcodone 325-5 MG Tab PO PRN ×2 (03:50→08:15)
[2023-06-04] MEDS: Pantoprazole 40 MG Tab.CR PO SCH (06:05)
[2023-06-04] MEDS: Metoclopramide 5 MG Tab PO SCH ×2 (06:05→10:49)
[2023-06-04] MEDS: Tamsulosin 0.4 MG Cap.ER PO SCH (08:11)
[2023-06-04] MEDS: Calcitriol 0.25 MCG Cap PO SCH (08:12)
[2023-06-04] MEDS: Citalopram 20 MG Tab PO SCH (08:13)
[2023-06-04] MEDS: Aspirin 81 MG Tab.EC PO SCH (08:13)
[2023-06-04] MEDS: Vitamin B Complex Tab PO SCH (08:14)
[2023-06-04] MEDS: Furosemide 40 MG Tab PO SCH (08:14)
[2023-06-04] MEDS: Allopurinol 100 MG Tab PO SCH (08:14)
[2023-06-04] MEDS: Isosorbide Mononitrate 30 MG Tab.ER PO SCH (08:14)
[2023-06-04] MEDS: Lisinopril 10 MG Tab PO SCH (08:15)
[2023-06-04] MEDS: Propranolol 20 MG Tab PO SCH (08:16)
[2023-06-04] MEDS: Formoterol/Mometasone 200-5 MCG 13 GM Inhaler INH SCH (08:19)
[2023-06-04] MEDS: Triamcinolone Acetonide 0.1% Crm 15 GM Tube TOP SCH (08:20)
[2023-06-04] MEDS: Insulin Glarg,Human.Rec.Analog 100 Unit/ML 10 ML Vial SUBCUT SCH (08:23)
== END 2023-06-04 12:15 | disposition home or self-care (01) | DRG 560 ==
LOC: VM.MS 17:26
PROVIDERS: ADMIT Family Medicine; ATTEND Family Medicine
DX: S32.512D Fracture of superior rim of left pubis, subsequent encounter for fracture with routine healing (principal); I25.10 Atherosclerotic heart disease of native coronary artery without angina pectoris; E78.00 Pure hypercholesterolemia, unspecified; I50.9 Heart failure, unspecified; J44.9 Chronic obstructive pulmonary disease, unspecified; I13.0 Hypertensive heart and chronic kidney disease with heart failure and stage 1 through stage 4 chronic kidney disease, or unspecified chronic kidney disease; G47.30 Sleep apnea, unspecified; N18.9 Chronic kidney disease, unspecified; M54.9 Dorsalgia, unspecified; M19.90 Unspecified osteoarthritis, unspecified site; G89.4 Chronic pain syndrome; E11.9 Type 2 diabetes mellitus without complications; Z79.82 Long term (current) use of aspirin; Z79.899 Other long term (current) drug therapy; Z79.4 Long term (current) use of insulin; Z88.8 Allergy status to other drugs, medicaments and biological substances
CPT/HCPCS: 72170; 82947; 95851-GO; 97110-GP; 97112-GP; 97116-GP; 97164-GP; 97530-GP; 97535-GO; 99306; 99307; 99315; A9270-GY; J1815-GY

== ENCOUNTER 2024-02-26 07:21 | Emergency (ER) | payer MEDICARE, BC ==
[2024-02-26] MEDS: Lidocaine 1% 30 ML SDV INJECT ONE (08:36)
[2024-02-26 08:44] VITALS: BP 178/90; PULSE 79
[2024-02-26 09:16] LABS: BASOPHILS ABSOLUTE AUTO 0.1 x10^3/uL (0.0-0.2); BASOPHILS PERCENT AUTO 0.4 % (0.2-1.2); EOSINOPHILS ABSOLUTE AUTO 0.2 x10^3/uL (0.0-0.5); HEMOGLOBIN 14.4 g/dL (14.0-18.0); IMMATURE GRAN ABSOLUTE AUTO 0.04 x10^3/uL (0.00-0.07); LYMPHOCYTES ABSOLUTE AUTO 1.1 x10^3/uL (1.0-4.8); MEAN CORPUSCULAR HEMOGLOBIN 33.9 pg (26.0-32.0); MEAN CORPUSCULAR HGB CONC 33.5 g/dL (32.0-36.0); MEAN CORPUSCULAR VOLUME 101.2 fL (78.0-93.0); MONOCYTES ABSOLUTE AUTO 0.9 x10^3/uL (0.0-0.8); MONOCYTES PERCENT AUTO 7.9 % (2.0-11.0); NEUTROPHILS ABSOLUTE AUTO 9.5 x10^3/uL (1.8-7.7); NEUTROPHILS PERCENT AUTO 80.4 % (50.0-80.0); PLATELET COUNT,PLT 248 x10^3/uL (130-400); RED BLOOD CELL COUNT 4.25 x10^6/uL (4.5-6.0); WHITE BLOOD CELL COUNT,WBC 11.8 x10^3/uL (4.0-10.0)
[2024-02-26 09:33] LABS: ALANINE AMINOTRANSFERASE,ALT 17 U/L (16-63); ALBUMIN 3.2 g/dL (3.4-5.0); ALKALINE PHOSPHATASE 92 U/L (46-116); ASPARTATE AMNIOTRANSFERASE,AST 19 U/L (15-37); BILIRUBIN TOTAL 0.3 mg/dL (0.2-1.0); BLOOD UREA NITROGEN,BUN 25 mg/dL (7-18); CALCIUM 9.2 mg/dL (8.5-10.1); CARBON DIOXIDE,CO2 34 mmol/L (21-32); CHLORIDE,CL 103 mmol/L (98-107); CREATININE 1.4 mg/dL (0.70-1.30); ESTIMATED GFR 51 mL/min (>=60); GLUCOSE RANDOM 131 mg/dL (70-99); PROTEIN TOTAL,TP 6.4 g/dL (6.4-8.2); SODIUM,NA 141 mmol/L (136-145)
[2024-02-26 09:37] LABS: INR 0.9 (0.9-1.1); PROTHROMBIN TIME 9.5 SEC (8.9-11.5); PTT,PARTIAL THROMBOPLSTIN TIME 24.9 SEC (21.9-33.8)
[2024-02-26] MEDS: Labetalol 20 MG/4 ML Syringe IVPUSH ONE (09:44)
== END 2024-02-26 09:35 | disposition short-term general hospital (02) ==
LOC: VM.ED 07:21
DX: S06.6X0A Traumatic subarachnoid hemorrhage without loss of consciousness, initial encounter (principal); S01.01XA Laceration without foreign body of scalp, initial encounter; S39.012A Strain of muscle, fascia and tendon of lower back, initial encounter; I25.10 Atherosclerotic heart disease of native coronary artery without angina pectoris; E11.22 Type 2 diabetes mellitus with diabetic chronic kidney disease; I13.0 Hypertensive heart and chronic kidney disease with heart failure and stage 1 through stage 4 chronic kidney disease, or unspecified chronic kidney disease; I50.9 Heart failure, unspecified; N18.9 Chronic kidney disease, unspecified; J44.9 Chronic obstructive pulmonary disease, unspecified; M19.90 Unspecified osteoarthritis, unspecified site; Z79.82 Long term (current) use of aspirin; Z79.4 Long term (current) use of insulin; Z79.899 Other long term (current) drug therapy; Z88.8 Allergy status to other drugs, medicaments and biological substances; Z87.891 Personal history of nicotine dependence; W18.2XXA Fall in (into) shower or empty bathtub, initial encounter; Y92.091 Bathroom in other non-institutional residence as the place of occurrence of the external cause
CPT/HCPCS: 12005; 36415; 70450; 72100; 72170; 80053; 83735; 85025; 85610; 85730; 99285; J3490

== ENCOUNTER 2024-12-24 19:58 | Emergency (ER) | payer MEDICARE, BC | END 2024-12-24 20:45 | disposition home or self-care (01) | LOC: VM.ED 19:58 | DX: K91.840 Postprocedural hemorrhage of a digestive system organ or structure following a digestive system procedure (principal); I13.0 Hypertensive heart and chronic kidney disease with heart failure and stage 1 through stage 4 chronic kidney disease, or unspecified chronic kidney disease; N18.9 Chronic kidney disease, unspecified; I50.9 Heart failure, unspecified; I25.10 Atherosclerotic heart disease of native coronary artery without angina pectoris; E78.00 Pure hypercholesterolemia, unspecified; Z88.8 Allergy status to other drugs, medicaments and biological substances; Z79.82 Long term (current) use of aspirin; Z79.899 Other long term (current) drug therapy; Z79.4 Long term (current) use of insulin | CPT/HCPCS: 99283 ==

== ENCOUNTER 2025-05-16 08:57 | Inpatient (IN) | payer MEDICARE, BC ==
[2025-05-16 09:26] LABS: BASOPHILS ABSOLUTE AUTO 0.1 x10^3/uL (0.0-0.2); BASOPHILS PERCENT AUTO 0.8 % (0.2-1.2); EOSINOPHILS ABSOLUTE AUTO 0.2 x10^3/uL (0.0-0.5); EOSINOPHILS PERCENT AUTO 2.7 % (0.0-4.0); IMMATURE GRAN ABSOLUTE AUTO 0.01 x10^3/uL (0.00-0.07); IMMATURE GRAN PERCENT AUTO 0.10 % (0.00-0.43); LYMPHOCYTES ABSOLUTE AUTO 1.2 x10^3/uL (1.0-4.8); LYMPHOCYTES PERCENT AUTO 14.9 % (25.0-50.0); MONOCYTES ABSOLUTE AUTO 0.8 x10^3/uL (0.0-0.8); MONOCYTES PERCENT AUTO 10.1 % (2.0-11.0); NEUTROPHILS ABSOLUTE AUTO 5.6 x10^3/uL (1.8-7.7); NEUTROPHILS PERCENT AUTO 71.4 % (50.0-80.0); PLATELET COUNT,PLT 298 x10^3/uL (130-400); RED BLOOD CELL COUNT 4.00 x10^6/uL (4.5-6.0); WHITE BLOOD CELL COUNT,WBC 7.8 x10^3/uL (4.0-10.0)
[2025-05-16 09:54] LABS: A/G RATIO 0.76; ALANINE AMINOTRANSFERASE,ALT 28 U/L (16-63); ASPARTATE AMNIOTRANSFERASE,AST 19 U/L (15-37); BILIRUBIN TOTAL 0.6 mg/dL (0.2-1.0); BLOOD UREA NITROGEN,BUN 44 mg/dL (7-18); CARBON DIOXIDE,CO2 29 mmol/L (21-32); CHLORIDE,CL 99 mmol/L (98-107); CREATININE 2.2 mg/dL (0.70-1.30); ESTIMATED GFR 29 mL/min (>=60); GLUCOSE RANDOM 240 mg/dL (70-99); POTASSIUM,K 4.5 mmol/L (3.5-5.1); PRO B-TYPE NATRIUR PEPT,BNPPRO 11193 pg/mL (<=450); PROTEIN TOTAL,TP 6.7 g/dL (6.4-8.2); SODIUM,NA 137 mmol/L (136-145)
[2025-05-16] MEDS: LORazepam 2 MG/ML SDV IVPUSH ONE (10:43)
[2025-05-16] MEDS: Furosemide 40 MG/4 ML VIAL IV ONE (11:34)
[2025-05-16] MEDS ORDERED: 50% Dextrose in Water 50 ML Syringe IVPUSH PRN (12:15)
[2025-05-16] MEDS: Furosemide 40 MG/4 ML VIAL IV SCH (14:16)
[2025-05-16] MEDS: Acetaminophen/HYDROcodone 325-5 MG Tab PO SCH (21:47)
[2025-05-16] MEDS: Heparin Sodium 5,000 Units/ML Vial SUBCUT SCH (22:04)
[2025-05-16] MEDS: Insulin Glarg,Human.Rec.Analog 100 Unit/ML 10 ML Vial SUBCUT SCH (22:05)
[2025-05-16] MEDS: Formoterol/Mometasone 200-5 MCG 13 GM Inhaler INH SCH (23:00)
[2025-05-17 07:05] LABS: BASOPHILS ABSOLUTE AUTO 0.1 x10^3/uL (0.0-0.2); BASOPHILS PERCENT AUTO 0.9 % (0.2-1.2); EOSINOPHILS ABSOLUTE AUTO 0.3 x10^3/uL (0.0-0.5); EOSINOPHILS PERCENT AUTO 4.3 % (0.0-4.0); IMMATURE GRAN ABSOLUTE AUTO 0.02 x10^3/uL (0.00-0.07); IMMATURE GRAN PERCENT AUTO 0.30 % (0.00-0.43); LYMPHOCYTES ABSOLUTE AUTO 1.4 x10^3/uL (1.0-4.8); LYMPHOCYTES PERCENT AUTO 21.2 % (25.0-50.0); MONOCYTES ABSOLUTE AUTO 0.9 x10^3/uL (0.0-0.8); MONOCYTES PERCENT AUTO 13.1 % (2.0-11.0); NEUTROPHILS ABSOLUTE AUTO 4.1 x10^3/uL (1.8-7.7); NEUTROPHILS PERCENT AUTO 60.2 % (50.0-80.0); PLATELET COUNT,PLT 238 x10^3/uL (130-400); RED BLOOD CELL COUNT 3.75 x10^6/uL (4.5-6.0); WHITE BLOOD CELL COUNT,WBC 6.8 x10^3/uL (4.0-10.0)
[2025-05-17 07:21] LABS: BLOOD UREA NITROGEN,BUN 43.0 mg/dL (7-18); CARBON DIOXIDE,CO2 28.0 mmol/L (21-32); CHLORIDE,CL 102.0 mmol/L (98-107); CREATININE 1.8 mg/dL (0.70-1.30); EST CRCL DRUG DOSING (CG) 29.04 mL/min; GLUCOSE RANDOM 159.0 mg/dL (70-99); POTASSIUM,K 3.6 mmol/L (3.5-5.1); SODIUM,NA 139.0 mmol/L (136-145)
[2025-05-17 07:23] LABS: ESTIMATED GFR 37.0 mL/min (>=60)
[2025-05-17] MEDS: Propranolol 60 MG Cap.ER PO SCH (08:02)
[2025-05-17] MEDS: buPROPion 150 MG Tab.ER PO SCH (08:03)
[2025-05-17] MEDS ORDERED: Heparin Sodium 5,000 Units/ML Vial SUBCUT SCH (09:00)
[2025-05-18 06:45] LABS: BASOPHILS ABSOLUTE AUTO 0.1 x10^3/uL (0.0-0.2); BASOPHILS PERCENT AUTO 0.9 % (0.2-1.2); EOSINOPHILS ABSOLUTE AUTO 0.6 x10^3/uL (0.0-0.5); EOSINOPHILS PERCENT AUTO 9.1 % (0.0-4.0); IMMATURE GRAN ABSOLUTE AUTO 0.03 x10^3/uL (0.00-0.07); IMMATURE GRAN PERCENT AUTO 0.40 % (0.00-0.43); LYMPHOCYTES ABSOLUTE AUTO 1.8 x10^3/uL (1.0-4.8); LYMPHOCYTES PERCENT AUTO 26.3 % (25.0-50.0); MONOCYTES ABSOLUTE AUTO 0.9 x10^3/uL (0.0-0.8); MONOCYTES PERCENT AUTO 13.6 % (2.0-11.0); NEUTROPHILS ABSOLUTE AUTO 3.4 x10^3/uL (1.8-7.7); NEUTROPHILS PERCENT AUTO 49.7 % (50.0-80.0); PLATELET COUNT,PLT 307 x10^3/uL (130-400); RED BLOOD CELL COUNT 3.63 x10^6/uL (4.5-6.0); WHITE BLOOD CELL COUNT,WBC 6.9 x10^3/uL (4.0-10.0)
[2025-05-18 06:55] LABS: BLOOD UREA NITROGEN,BUN 39.0 mg/dL (7-18); CARBON DIOXIDE,CO2 31.0 mmol/L (21-32); CHLORIDE,CL 102.0 mmol/L (98-107); CREATININE 1.9 mg/dL (0.70-1.30); EST CRCL DRUG DOSING (CG) 27.52 mL/min; GLUCOSE RANDOM 187.0 mg/dL (70-99); POTASSIUM,K 3.5 mmol/L (3.5-5.1); SODIUM,NA 140.0 mmol/L (136-145)
[2025-05-18 06:57] LABS: ESTIMATED GFR 35.0 mL/min (>=60)
[2025-05-19 07:07] LABS: BLOOD UREA NITROGEN,BUN 38.0 mg/dL (7-18); CARBON DIOXIDE,CO2 31.0 mmol/L (21-32); CHLORIDE,CL 102.0 mmol/L (98-107); CREATININE 1.8 mg/dL (0.70-1.30); EST CRCL DRUG DOSING (CG) 29.04 mL/min; GLUCOSE RANDOM 167.0 mg/dL (70-99); POTASSIUM,K 3.6 mmol/L (3.5-5.1); SODIUM,NA 140.0 mmol/L (136-145)
[2025-05-19 07:09] LABS: ESTIMATED GFR 37.0 mL/min (>=60)
[2025-05-20] MEDS: Ondansetron 4 MG/2 ML SDV IV PRN (05:25)
== END 2025-05-20 15:46 | disposition short-term general hospital (02) | DRG 291 ==
LOC: VM.ED 08:57 → VM.MS 11:13
PROVIDERS: ADMIT Internal Medicine; ATTEND Internal Medicine
DX: I13.0 Hypertensive heart and chronic kidney disease with heart failure and stage 1 through stage 4 chronic kidney disease, or unspecified chronic kidney disease (principal); I50.9 Heart failure, unspecified; N18.9 Chronic kidney disease, unspecified; I50.33 Acute on chronic diastolic (congestive) heart failure; N17.9 Acute kidney failure, unspecified; E11.9 Type 2 diabetes mellitus without complications; E11.22 Type 2 diabetes mellitus with diabetic chronic kidney disease; N18.32 Chronic kidney disease, stage 3b; I25.10 Atherosclerotic heart disease of native coronary artery without angina pectoris; H54.7 Unspecified visual loss; G47.30 Sleep apnea, unspecified; M19.90 Unspecified osteoarthritis, unspecified site; G89.29 Other chronic pain; E66.01 Morbid (severe) obesity due to excess calories; J44.89 Other specified chronic obstructive pulmonary disease; M54.9 Dorsalgia, unspecified; E11.51 Type 2 diabetes mellitus with diabetic peripheral angiopathy without gangrene; E78.00 Pure hypercholesterolemia, unspecified; M10.40 Other secondary gout, unspecified site; Z79.82 Long term (current) use of aspirin; Z91.51 Personal history of suicidal behavior; Z88.8 Allergy status to other drugs, medicaments and biological substances; Z79.899 Other long term (current) drug therapy; Z79.1 Long term (current) use of non-steroidal anti-inflammatories (NSAID); Z79.891 Long term (current) use of opiate analgesic; Z68.33 Body mass index [BMI] 33.0-33.9, adult; Z79.4 Long term (current) use of insulin
CPT/HCPCS: 36415; 71045; 80053; 83880; 85025; 93010; 96365; 96375; 99284; 99285; A9270; J0456; J0696; J2060; J7050; 51798; 71250; 80048; 82947; 84100; 93005; 94640; 94760; 97116-GP; 97162-GP; 97165-GO; 97530-GP; 97535-GO; 99223-GT; 99232-GT; 99233-GT; 99239-GT; J1644; J1815-GY; J1938; J2405; J7512